=== PATIENT | female | born 1990 | race Caucasian/White ===

== ENCOUNTER → 2016-09-18 | Outpatient (CLI) | payer BC ==
[~2016-09-18] MED LIST: LEVOIUD INT UTER; SUMA25TA12 PO
[2016-09-18 15:00] LABS: URINE APPEARANCE CLEAR (CLEAR); URINE BILIRUBIN NEG (NEG); URINE COLOR YELLOW; URINE NITRITE NEG (NEG); URINE PH 8.5 (4.5-7.5); UROBILINOGEN NEG (NEG)
[2016-09-18 15:03] LABS: MANUAL MICROSCOPIC REQUIRED? NO; REVIEW REQ? NO
== END | disposition home or self-care (01) ==
LOC: C.LABSPEC 13:51
PROVIDERS: ATTEND Obstetrics & Gynecology
DX: Z34.90 Encounter for supervision of normal pregnancy, unspecified, unspecified trimester (principal)

== ENCOUNTER → 2016-09-24 | Outpatient (CLI) | payer BC | END | disposition home or self-care (01) | LOC: C.PAPS 13:32 | PROVIDERS: ATTEND Obstetrics & Gynecology | DX: Z01.419 Encounter for gynecological examination (general) (routine) without abnormal findings (principal) ==

== ENCOUNTER → 2016-09-24 | Outpatient (CLI) | payer BC ==
[2016-09-26 01:36] LABS: CHLAMYDIA TRACH RNA*** NOT DETECTED (NOT DETECTED); GC (NEIS GONORRHOEAE)RNA** NOT DETECTED (NOT DETECTED)
== END | disposition home or self-care (01) ==
LOC: C.LABSPEC 11:58
PROVIDERS: ATTEND Obstetrics & Gynecology
DX: Z34.90 Encounter for supervision of normal pregnancy, unspecified, unspecified trimester (principal)

== ENCOUNTER → 2016-09-24 | Outpatient (CLI) | payer BC ==
[2016-09-24 09:54] LABS: BASO % 0.2 %; BASO ABS # 0.02 K/uL (0-0.2); COMPLETE YES; EOS % 1.4 %; HEMATOCRIT 37.6 % (37-47); IG% 0.2 %; LYMPH % 21.8 %; LYMPH ABS # 2.48 K/uL (1.2-3.4); MEAN CELL VOLUME 89.5 fL (80-100); MEAN CORPUSCULAR HGB CONC 34.6 g/dl (32-36); MEAN PLATELET VOLUME 9.2 fL (7.4-10.4); MONO % 4.2 %; NEUT % 72.2 %; PLATELET COUNT 307 K/uL (130-400); WHITE BLOOD COUNT 11.39 K/uL (4.8-10.8)
== END | disposition home or self-care (01) ==
LOC: C.LAB1850 09:04
PROVIDERS: ATTEND Obstetrics & Gynecology
DX: Z34.90 Encounter for supervision of normal pregnancy, unspecified, unspecified trimester (principal)

== ENCOUNTER → 2016-11-17 | Outpatient (CLI) | payer BC ==
[2016-11-17 18:20] LABS: GTGD 50 Grams
[2016-11-20 13:26] LABS: AFP CONCENTRATION 45.7 NG/ML; AFP MULTIPLE OF MEDIAN 1.13; AFPTS GESTATIONAL AGE 18.4 WEEKS; AFPTS INSULIN DEP DIABETIC? NO; AFPTS MATERNAL WT 178 LBS; ALPHA-FETOPROTEIN RACE CAUCASIAN=W; ESTRIOL MULTIPLE OF MEDIAN 0.62; HISTORY OF NTD NO; INHIBIN A 190 PG/ML; INHIBIN A MOM 1.23; REPEAT SAMPLE? NO; hCG MULTIPLE OF MEDIAN 1.66
== END | disposition home or self-care (01) ==
LOC: C.LAB1850 15:50
PROVIDERS: ATTEND Obstetrics & Gynecology
DX: Z34.82 Encounter for supervision of other normal pregnancy, second trimester (principal)

== ENCOUNTER → 2017-02-19 | Outpatient (CLI) | payer BC | END | disposition home or self-care (01) | LOC: C.LAB1850 07:47 | PROVIDERS: ATTEND Obstetrics & Gynecology | DX: O28.1 Abnormal biochemical finding on antenatal screening of mother (principal); Z3A.00 Weeks of gestation of pregnancy not specified ==

== ENCOUNTER → 2017-04-07 | Outpatient (CLI) | payer BC ==
[~2017-04-07] MED LIST changes: +LEVO1IUD2 INT UTER; -LEVOIUD INT UTER; +PRENTAB26 PO
== END | disposition home or self-care (01) ==
LOC: C.LABSPEC 17:46
PROVIDERS: ATTEND Obstetrics & Gynecology
DX: Z34.83 Encounter for supervision of other normal pregnancy, third trimester (principal)

== ENCOUNTER 2017-04-21 11:17 | Inpatient (IN) | payer BC ==
[~2017-04-21] VITALS: Ht 160 cm; Wt 99.1 kg
[~2017-04-21 11:17] MED LIST changes: -PRENTAB26 PO
[2017-04-21] MEDS ORDERED: LACTATED RINGER'S 1000ML 1,000 ML IV SCH ×2 (11:30→16:38)
[2017-04-21] MEDS ORDERED: LACTATED RINGER'S 1000ML 1,000 ML IV PRN (11:30)
[2017-04-21] MEDS ORDERED: BUPIVACAINE 0.25% 30 ML VIAL ONE (11:46)
[2017-04-21] MEDS ORDERED: FENTANYL 2MCG/ML ROPIV 1.25MG/ML 100ML BAG EPI ONE (11:47)
[2017-04-21] MEDS ORDERED: EpHEDrine SULFATE INJ 50 MG/ML AMP ONE (11:47)
[2017-04-21] MEDS ORDERED: FENTANYL CITRATE INJ 50 MCG/1 ML 2 ML VIAL ONE (11:47)
[2017-04-21 11:48] LABS: HEMATOCRIT 38.4 % (37-47); HEMOGLOBIN 13.5 g/dL (12.0-16.0); MEAN CELL VOLUME 94.1 fL (80-100); MEAN CORPUSCULAR HEMOGLOBIN 33.1 pg (25-34); MEAN CORPUSCULAR HGB CONC 35.2 g/dl (32-36); MEAN PLATELET VOLUME 9.8 fL (7.4-10.4); PLATELET COUNT 258 K/uL (130-400); RED CELL DISTRIBUTION WIDTH CV 13.4 % (11.5-14.5); RED CELL DISTRIBUTION WIDTH SD 46.2 fL (36.4-46.3); WHITE BLOOD COUNT 12.01 K/uL (4.8-10.8)
[2017-04-21 12:55] VITALS: Ht 160 cm; Wt 99.1 kg
[2017-04-21] MEDS ORDERED: PRENTAB26 PO (13:13)
[2017-04-21] MEDS ORDERED: NALOXONE HCL INJ 1 MG in SODIUM CHLORIDE 0.9% 1000ML 1,000 ML IV PRN (14:17)
[2017-04-21] MEDS ORDERED: LACTATED RINGER'S 1000ML 500 ML IV PRN (14:17)
[2017-04-21] MEDS ORDERED: NALOXONE HCL INJ 0.4 MG/1 ML VIAL/CARP IV PRN (14:30)
[2017-04-21] MEDS ORDERED: ONDANSETRON INJ 2 MG/ML 2 ML VIAL IV PRN (14:30)
[2017-04-21] MEDS ORDERED: EpHEDrine SULFATE INJ 50 MG/ML AMP IV PRN (14:30)
[2017-04-21] MEDS ORDERED: DiphenhydrAMINE HCL 50 MG/ML VIAL IV PRN (14:30)
[2017-04-21] MEDS ORDERED: NALBUPHINE HCL INJ 10 MG/ML AMP IV PRN (14:30)
[2017-04-21] MEDS: FENTANYL 2MCG/ML ROPIV 1.25MG/ML 100ML BAG EPI PRN ×2 (14:53→15:20)
[2017-04-21] MEDS ORDERED: CALCIUM CARBONATE 500 MG CHEWABLE PO PRN (15:30)
--- NOTE | 2017-04-21 15:31 | Medical Student: [facility] ---
Med Student TRANSFORMER MAKER Progress Nt Date of Service Apr 21, 2017. Subjective conversation w/ patient, physical exam Notes: Raiza is resting comfortably. Objective Vital Signs BP: 137/66 P: 95 O2: 96% Physical Exam Cervix exam: 8 cm dilated, 100% effaced, -1 station FHTs: Category 1: baseline HR 135-145 with moderate variability and accelerations. No early/late/variable decelerations Omao: Contractions every 2-3 minutes. Laboratory Results Last 24 Hours Test 04/21/17 11:40 White Blood Count 12.01 K/uL Red Blood Count 4.08 M/uL Hemoglobin 13.5 g/dL Hematocrit 38.4 % Mean Corpuscular Volume 94.1 fL Mean Corpuscular Hemoglobin 33.1 pg Mean Corpuscular Hemoglobin Concent 35.2 g/dl RDW Standard Deviation 46.2 fL RDW Coefficient of Variation 13.4 % Platelet Count 258 K/uL Mean Platelet Volume 9.8 fL Assessment and Plan Continue Routine Care: Raiza Rod is a with SELAM of 05/04/2017 who presented for onset of labor with ROM at 3/100/-1. Her BP has elevated some after her epidural up to 140s/80-low 90s. She also has 2+ protein in her urine (straight cath). She is an anticipated vaginal delivery and will continue to monitor BPs and treat accordingly to prevent preeclampsia if necessary.
[2017-04-21] MEDS ORDERED: OXYTOCIN 30 UNITS/500ML NSS IV ONE (16:25)
[2017-04-21] MEDS ORDERED: ACETAMINOPHEN 325 MG TAB PO PRN (16:45)
[2017-04-21] MEDS ORDERED: DIPHTHERIA/TETANUS/PERTUSSIS 0.5 ML SYR/VIAL IM. ONE (16:45)
[2017-04-21] MEDS ORDERED: OXYCODONE/ACETAMINOPHEN 5-325 TAB PO PRN (16:45)
[2017-04-21] MEDS ORDERED: LANOLIN OINT EXT PRN (16:45)
[2017-04-21] MEDS ORDERED: OXYTOCIN 30 UNITS/500ML NSS IV PRN (16:45)
[2017-04-21] MEDS ORDERED: HYDROCORTISONE ACETATE 25 MG SUPP PR PRN (16:45)
[2017-04-21] MEDS ORDERED: BENZOCAINE 20% AER SPR 82.5 GM CAN EXT PRN (16:45)
[2017-04-21] MEDS ORDERED: SUPERCREAM 0.870 % 15GM JAR EXT PRN (16:45)
--- NOTE | 2017-04-21 16:56 | Medical Student: [facility] ---
Medical Student Delivery Note Raiza Rod is a 26 yo white female now 2 with EDC of 05/04/2017 as estimated by LMP on 07/28/2016. Her labs showed blood type O+, rubella immune, HepB negative, declined genetic testing, negative GBS titer, normal glucose screen at 28 weeks (187). She presented with spontaneous rupture of membranes this morning at 3/100/-1. She pushed for approximately 5 minutes, delivering a viable female infant POOJA position and restituted to LOT, over intact perineum. placed on the mother's abdomen for drying and attention. Umbilical cord was clamped in 2 places and cut. Cord blood sample was obtained. Placenta was delivered spontaneously and intact. Perineum inspection showed no laceration. EBL was 250ml. Sponge, instrument, and needle count was correct x2. Vigorous female 's Apgars were 8 (1 minute) and 9 (5 minute); weight is pending. Mother and baby are doing well and recovering together.
--- NOTE | 2017-04-21 17:24 | Anesthesia Procedure Note ---
Anesthesia Epidural Removal Nt Date & Time Apr 21, 2017 at 17:24 Vital Signs Pain Intensity: 0.0 Notes Mental Status: alert / awake / arousable, participated in evaluation Nausea / Vomiting: adequately controlled Pain: adequately controlled Airway Patency, RR, SpO2: stable & adequate BP & HR: stable & adequate Hydration State: stable & adequate Neuraxial Anesthesia: was administered Anesthetic Complications: no major complications apparent, pt satisfied with anesthetic care Epidural: removed without complications, with tip intact
[2017-04-21] MEDS: IBUPROFEN 600 MG TAB PO PRN ×2 (19:00→23:09)
[2017-04-21 19:15] VITALS: BP 147/77; PULSE 85; TEMP 37
--- NOTE | 2017-04-21 19:16 | DELIVERY SUMMARY ---
DATE OF OPERATION: 04/21/2017 PREOPERATIVE DIAGNOSES: 1. 2, para 1 at 38 and 1. 2. Spontaneous onset of labor. 3. Group B strep negative. POSTOPERATIVE DIAGNOSES: Same. PROCEDURE: Spontaneous vaginal delivery. SURGEON: Sia Thorpe MD. COCOA MILL OPERATOR: None. ESTIMATED BLOOD LOSS: 250. COMPLICATIONS: None. DISPOSITION: Stable in labor and delivery. DESCRIPTION OF PROCEDURE: Raiza Rod is a G2, P1 who presented at 38 and 1/7 weeks gestational age with spontaneous rupture of membranes and onset of painful contractions at home. She was provided with an epidural for pain management and she progressed with expectant management all the way to completely dilated with an urge to push. She began at second stage of labor with nursing. Shortly thereafter she had brought the head well down towards [facility] and I was called for delivery. I gowned and gloved and the patient was scrubbed. Over the next few pushing efforts, she brought the head to delivery shortly thereafter followed by the shoulders and reminder of infant with no difficulty. The vigorous female infant was placed on the maternal abdomen where the cord was doubly clamped and cut by the father of the baby. The placenta delivered spontaneously and was noted to be intact with a 3-vessel cord and a significantly sized succenturiate lobe which will therefore be sending for examination. There were no lacerations of the cervix, vagina or perineum requiring repair. At the current time, both mother and infant are in stable condition having tolerated the delivery well. I attest to the content of the Intraoperative Record and any orders documented therein. Any exception s are noted below.
[2017-04-21 20:10] VITALS: BP 141/67; PULSE 80; TEMP 36.7; O2SAT 98
[2017-04-21] MEDS: DOCUSATE SODIUM 100 MG CAP PO SCH (20:32)
[2017-04-21 23:50] VITALS: BP 136/78; PULSE 76; TEMP 36.9
[2017-04-22 04:20] VITALS: BP 135/73; PULSE 79; TEMP 36.7
--- NOTE | 2017-04-22 05:55 | Medical Student: [facility] ---
Med Student MINK RANCHER Progress Nt Date of Service Apr 22, 2017. Subjective conversation w/ patient, physical exam Ambulation: ambulating normally Voiding: no voiding problems Passing Gas: Yes Diet Tolerance: Regular Diet Lochia: Moderate Feeding Type: Breast Feeding Pain: controlled with motrin Notes: She was breast feeding on exam. She reports baby does well on left but has trouble latching on right. Would like assistance from nursing at next feeding. Review of Systems Constitutional: No fever, No chills Respiratory: No cough, No shortness of breath Cardiac: No chest pain, No edema, No palpitations Abdomen: + nausea (upon standing, but passes quickly), No vomiting, No diarrhea Female : No dysuria No RUQ pain, no headache, no blurry vision. Objective Vital Signs Date Time Temp Pulse Resp B/P (MAP) Pulse Ox O2 Delivery O2 Flow Rate FiO2 04/22/17 04:20 36.7 79 20 135/73 (93) Room Air 04/21/17 23:50 Room Air 04/21/17 23:50 36.9 76 18 136/78 (97) Room Air 04/21/17 20:10 36.7 80 18 141/67 (91) 98 Room Air 04/21/17 19:15 37.0 85 18 147/77 (100) 04/21/17 19:15 Room Air Physical Exam General Appearance: WELL-APPEARING, WD/WN, NO APPARENT DISTRESS Respiratory/Chest: lungs clear, normal breath sounds Cardiovascular: regular rate, rhythm, no edema, no murmur Abdomen: soft Fundus: Firm, Relation to Umbilicus (at umbilicus) Extremities: non-tender, no pedal edema, no calf tenderness Laboratory Results Last 24 Hours Test 04/21/17 11:40 04/22/17 04:44 White Blood Count 12.01 K/uL Red Blood Count 4.08 M/uL Hemoglobin 13.5 g/dL Hematocrit 38.4 % Mean Corpuscular Volume 94.1 fL Mean Corpuscular Hemoglobin 33.1 pg Mean Corpuscular Hemoglobin Concent 35.2 g/dl RDW Standard Deviation 46.2 fL RDW Coefficient of Variation 13.4 % Platelet Count 258 K/uL Mean Platelet Volume 9.8 fL Assessment and Plan Post- Day Number: 1 Continue Routine Care: 26 f now 2 PPD1, GBS-/O+/RI Vitals reviewed, stable and WNL. Hgb 13.5 at admission, pending today. She has moderate lochia with some small clots, changing pad every 2-3 hours but can be soaked through. She is having a little trouble breast feeding on right breast, and requests some additional support at next feeding. Plan; 1. Continue recovery from vaginal delivery and post care, encourage ambulation, support breast feeding, control pain, monitor lochia.
[2017-04-22 07:05] VITALS: BP 123/79; PULSE 74; TEMP 36.6; O2SAT 98
--- NOTE | 2017-04-22 07:24 | OB/GYN Progress Note ---
[facility]DC[facility] C[facility] DIRECTOR Progress Note Date of Service Apr 22, 2017. Subjective conversation w/ patient, physical exam, chart review, lab review Ambulation: ambulating normally Voiding: no voiding problems Passing Gas: Yes Diet Tolerance: Regular Diet Lochia: Moderate Feeding Type: Breast Feeding Pain: controlled with motrin Notes: wants support for BF Review of Systems Constitutional: No fever, No chills Respiratory: No cough, No shortness of breath Cardiac: No chest pain, No palpitations Abdomen: + nausea, No pain, No vomiting Female : No dysuria No RUQ pain, FREEMAN, blurry vision Objective Vital Signs Date Time Temp Pulse Resp B/P (MAP) Pulse Ox O2 Delivery O2 Flow Rate FiO2 04/22/17 04:20 36.7 79 20 135/73 (93) Room Air 04/21/17 23:50 Room Air 04/21/17 23:50 36.9 76 18 136/78 (97) Room Air 04/21/17 20:10 36.7 80 18 141/67 (91) 98 Room Air 04/21/17 19:15 37.0 85 18 147/77 (100) 04/21/17 19:15 Room Air Physical Exam General Appearance: WELL-APPEARING, WD/WN, NO APPARENT DISTRESS Respiratory/Chest: lungs clear, normal breath sounds Cardiovascular: regular rate, rhythm, no murmur Fundus: Firm, Relation to Umbilicus (at umbilicus ) Extremities: normal inspection, no pedal edema, no calf tenderness Laboratory Results Last 24 Hours Test 04/21/17 11:40 04/22/17 04:44 White Blood Count 12.01 K/uL Red Blood Count 4.08 M/uL Hemoglobin 13.5 g/dL Hematocrit 38.4 % Mean Corpuscular Volume 94.1 fL Mean Corpuscular Hemoglobin 33.1 pg Mean Corpuscular Hemoglobin Concent 35.2 g/dl RDW Standard Deviation 46.2 fL RDW Coefficient of Variation 13.4 % Platelet Count 258 K/uL Mean Platelet Volume 9.8 fL Assessment and Plan Post- Day Number: 1 Continue Routine Care: 26 f now 2 PPD1 GBS-/O+/RI. Hg 13.5 on admission, pending today. Patient is doing well clinically. Patient presented with ruptured membranes, proteinuria +2 and SBP in the 140's. Since delivery her pressures have normalized (135/73 this am). Will continue to follow this am. Pt will be dc tonight. Plan; 1. Continue pp care; ambulate, support Bf, monitor lochia, control pain 2. Serial BP today, plan for dc tonight, instructions discussed with patient Resident Physician Supervision Note: I was present with Dr. Sullivan during the history and exam. I discussed the case with the resident and agree with the findings and plan as documented in the note. Any exceptions or clarifications are listed here: [None] Documented By: Sia Thorpe
--- NOTE | 2017-04-22 07:26 | Discharge Instructions ---
Discharge Instructions Date of Service Apr 22, 2017. Admission Reason for Admission: R/O Labor Discharge Discharge Diagnosis / Problem: vaginal delivery Discharge Goals Goal(s): Routine recovery after delivery Medications Continue Dispensed Medications: supercream, dermaplast, tucks, lansinoh Activity Recommendations Activity Limitations: per Instructions/Follow-up section . Instructions / Follow-Up Instructions / Follow-Up ACTIVITY RECOMMENDATIONS: * Gradual return to full activity over the next 2-3 weeks. * No lifting - nothing heavier than baby over the next 2-3 weeks. * Do not engage in vigorous exercise, sexual activity or sports until cleared by your physician. * Do not drive or operate any motorized equipment until cleared by your physician. * You may shower/bathe daily. MEDICATIONS: For discomfort or pain, you may use Acetaminophen (Tylenol), Ibuprofen (Advil), or Naproxen (Aleve) following the package directions. For constipation you may use Colace following the package directions. BREAST CARE: If you are not breast feeding: * Wear a supportive bra 24 hours a day for one to two weeks. * Avoid stimulating your breasts and nipples as much as possible during the first few weeks after delivery. * When taking a shower, have the warm water hit your back, not breasts. * When your breasts feel full, apply ice packs. Usually three to four times a day helps ease the discomfort. * Take a mild pain medication (Tylenol / Motrin) when you are uncomfortable. If breast feeding: * Use breast milk to lubricate nipples. Lansinoh cream may be used for sore nipples. You do not need to remove cream prior to breast feeding. If using a different brand of cream, check the label for directions regarding removal of cream prior to nursing. * Wear a supportive bra. * If having problems with breasts or breast feeding, call a personnel consultant or your health care provider. EPISIOTOMY CARE: After delivery, if you have an episiotomy (stitches), the following steps will ease discomfort and aid healing. * For the first 24 hours after delivery, place ice packs next to your episiotomy to help reduce swelling. * After the first 24 hour-period, sitz baths, either portable or in the tub, are suggested. A shower with a shower arm sprayed over the episiotomy may be comforting. * Mari care should be done after each voiding and bowel movement. Squirt warm water from a plastic bottle over the perineum (region of the body between the anus and urinary opening) and pat dry. * Use Dermoplast to ease discomfort. Shake container. Fitzwilliam directly over the episiotomy. Place a Tucks on a clean sanitary pad next to your episiotomy. SPECIAL CARE INSTRUCTIONS: When you are discharged from the hospital, it is important for you to follow the instructions listed below: * During the first week at home, you should be able to care for yourself and your baby. In addition, the usual light household activities are encouraged. * Limit your activities to the way you feel. Do not try to clean the house or move furniture. Be sensible. * If you actively engage in sports and have done so up until the time of your delivery, you may resume these activities as soon as you feel able. This may take up to one month or even longer. Use good judgment. * Continue to take your vitamins for at least six weeks after the of your baby. * Your diet need not be limited unless you were on a special diet before your delivery. Breast-feeding mothers need around 2500 calories per day and at least 64-80 ounces of fluid per day (8 to 10 glasses). * You should eat foods from the four major food groups. Crash diets or fad diets are to be avoided. Eating lean meats, fresh fruits and vegetables, low-fat dairy products, high fiber foods and a regular exercise program, will help you get back to your pre- weight without putting your health at risk. * Constipation is sometimes a problem after delivery. Take a mild laxative as needed. If breast feeding, Milk of Magnesia is acceptable to use. You may use a suppository or Fleets enema if no episiotomy. * A daily shower or tub bath is suggested. Be sure to thoroughly and gently dry the perineum. * A bloody vaginal discharge will usually continue until around four weeks post . A small amount of bleeding may continue for as long as six weeks. Vaginal discharge changes from the bright red bleeding after delivery to pink then brownish and finally yellowish-pink before becoming white and disappearing. * Bleeding may increase with activity. Your first period may come in 4-8 weeks. If you are breast feeding, your period may be delayed even longer. * Axis (sex) can begin whenever both you and your partner feel comfortable and do not have any form of genital infection. It is recommended that you wait at least six weeks for internal and external healing to occur. If you have questions, please talk to your health care practitioner. A condom should be used to prevent infection and . * Foreplay, gentle intercourse and lubrication is very important the first several times to prevent pain. A water-based lubricant such as K-Y jelly or Astroglide may be used. * If you have RH negative blood and your baby is RH positive, you will receive RHOGAM by injection prior to discharge. The nurse will give you a card to keep with you that has the date and place that you received RHOGAM after delivery. * During your care, you had a Rubella screen done to check for the presence of rubella antibodies in your blood. If your test was negative, you will receive a Rubella vaccine prior to discharge. This vaccine may cause a fever, soreness at the injection site and flu-like symptoms. If these symptoms persist, notify your health care practitioner. is not advised for one month after a Rubella vaccine. * Verbalizes understanding of car seat law as reviewed with patient nursing. * Car Seat hand-out given and reviewed with patient by nursing. * Shaken baby information reviewed with patient by nursing. Call you doctor if: * Heavy bleeding (saturating several pads an hour) or passing clots the size of your fist. * A fever >101 degrees F (38.3 degrees C) on two occasions four hours apart and /or chills. * Unusual pain in the pelvic or vaginal areas. * "Baby Blues" lasting longer than two weeks. If you have any questions or concerns, call your health care practitioner at . FOLLOW UP VISIT: * Please call the office at to schedule a 6 week examination. It is important you keep this appointment. It is important for you to make arrangements for either yearly or twice yearly check-ups thereafter. Current Hospital Diet Patient's current hospital diet: Regular OB Diet Discharge Diet Recommended Diet: Regular OB Diet Pending Studies Studies pending at discharge: no Medical Emergencies . Who to Call and When: Medical Emergencies: If at any time you feel your situation is an emergency, please call [phone] immediately. . Non-Emergent Contact Non-Emergency issues call your: Parking Inspector . . "Provider Documentation" section prepared by Chai Sullivan. . VTE Core Measure Inpt VTE Proph given/why not?: Treatment not indicated
[2017-04-22] MEDS ORDERED: PRENATAL VITAMIN TAB PO SCH (08:00)
[2017-04-22] MEDS: DOCUSATE SODIUM 100 MG CAP PO SCH (08:28)
[2017-04-22] MEDS: IBUPROFEN 600 MG TAB PO PRN ×2 (08:33→14:18)
[2017-04-22 11:07] VITALS: BP 148/84; PULSE 78; TEMP 36.7; O2SAT 97
[2017-04-22 16:30] VITALS: BP 148/83; PULSE 72; TEMP 36.8; O2SAT 96
== END 2017-04-22 19:15 | disposition home or self-care (01) | DRG 775 ==
LOC: C.LD 11:17 → C.OPB 11:17 → C.LD 11:31 → C.OBG 19:20 → EDSTATUS 05-04 11:24
PROVIDERS: ADMIT Obstetrics & Gynecology; ATTEND Obstetrics & Gynecology
PROC: 10E0XZZ Delivery of Products of Conception, External Approach (ICD-10-PCS; principal; 2017-04-21)
DX: O80 Encounter for full-term uncomplicated delivery (principal); Z3A.38 38 weeks gestation of pregnancy; Z37.0 Single live birth

== ENCOUNTER → 2017-08-24 | Outpatient (CLI) | payer BC ==
[~2017-08-24] MED LIST changes: -LEVO1IUD2 INT UTER; +PRENTAB26 PO; -SUMA25TA12 PO
[2017-08-24 16:59] LABS: HEP C IGG 13 YRS+OLDER_RFLX NEG (NEG)
== END | disposition home or self-care (01) ==
LOC: C.LAB1850 13:47
PROVIDERS: ATTEND Obstetrics & Gynecology
DX: Z11.3 Encounter for screening for infections with a predominantly sexual mode of transmission (principal)

== ENCOUNTER 2020-06-03 05:38 | Inpatient (IN) ==
--- NOTE | 2020-05-20 13:53 | Anesthesiology Consultation ---
Date of Service May 20, 2020 Assessment & Plan (1) Encounter for pre-operative examination: COVID Status: As of 05/20 nurse assessment, patient denies travel to endemic area, known exposure/sick contacts, or symptoms of COVID19. Preoperative COVID19 testing to be completed on 05/28. Chart Review Chart Review: direct entry midwife initiated History Surgery Operation Date: 06/03/20 07:30 Proposed Procedures p Section in LD - Reny Law MD Height/Weight Height: 5 ft 2 in Weight: 93.894 kg Allergies Allergy/AdvReac Type Severity Reaction Status Date / Time No Known Allergies Allergy Mild Verified 05/20/20 13:21 Medications Home Medications Medication Instructions Recorded Confirmed Last Taken prenat.vits,yan,[id number] 1 tab PO QAM 10/18/19 05/20/20 Unknown sertraline 50 mg PO QAM 05/20/20 05/20/20 Unknown Past Medical History Medical History Anxiety Depression Palpitations holter monitor study summer 2019 - [facility] - "skipped beats" - monitoring; no treatment; no flosser Past Family History Family History Mother Alcohol abuse Depression Grandmother (Paternal) Stroke Family/Other Diabetes Grandfather (Paternal) Lung cancer Brother Narcolepsy Other No family history of adverse response to anesthesia Past Surgical History Surgical History History of colonoscopy History of surgery removal IUD History of wisdom tooth extraction Social History Smoking Status: Former smoker Do You Dip or Chew Tobacco: No Smoking End Date: quit 2017 Hx Alcohol Use: No Hx Substance Use: No substance use type: does not use Testing Other Testing Holter Monitor Report 11/27/19 Good technical quality. Rhythm is predominantly sinus rhythm, avg HR 79bpm. Isolated APD and VPDs, no complex arrhythmias. Diary submitted symptoms of "flutter and thump" correlated with VPDs.
--- NOTE | 2020-05-30 19:33 | History & Physical Report ---
Date of Service May 30, 2020 Assessment & Plan (1) Breech presentation: Discussed indications, risks, benefits, alternatives with risks including infection, bleeding, injury to adjacent structures (bowel, bladder, ureters, blood vessels, nerves, baby), possible need for blood transfusion and/or life saving hysterectomy, VTE. Discussed option for ECV which was again declined today as it was previously. Consent reviewed in detail w/ pt and signed after all questions answered to her satisfaction. Based on timing of symptoms, pt will be outside of 11 day window for needing covid precautions. Will plan on ultrasound prior to going to OR on Wednesday to confirm breech presentation again. (2) Encounter for pre-operative examination: History of Present Illness Chief Complaint: Preop for CS Primary Care Provider: OSWALDO Pineda 29 y/o at 39 wga w/ SELAM 06/06/20 by LMP 08/31/19 c/w 1st tri US presents for preop for scheduled primary CS for breech. +FM; denies tx, LOF, VB. Was just dx w/ COVID 05/25 after s/s began 05/22. Symptoms improving today PNI: COVID + breech ASCUS/HPV- pap at beginning of Past FINANCIAL EXAMINER Hx: G1 at 41 wks, IOL for oligo G2 at 38 wks G3 current Menarche 13, cycles regular last pap ASCUS/HPV- 10/2019, no hx abnl pap otherwise denies hx STI Allergies Allergy/AdvReac Type Severity Reaction Status Date / Time No Known Allergies Allergy Mild Verified 05/30/20 15:33 Home Medications Medication Instructions Recorded Confirmed Type prenat.vits,yan,kto-qgua-yryow 1 tab PO QAM 10/18/19 05/30/20 History sertraline 50 mg PO QAM 05/20/20 05/30/20 History Patient History Medical History Anxiety Depression Palpitations holter monitor study summer 2019 - [facility] - "skipped beats" - monitoring; no treatment; no machine heddle cleaner Surgical History History of colonoscopy History of surgery hysteroscopic removal IUD History of wisdom tooth extraction Family History Mother Alcohol abuse Depression Grandmother (Paternal) Stroke Family/Other Diabetes Grandfather (Paternal) Lung cancer Brother Narcolepsy Other No family history of adverse response to anesthesia Social History Smoking Status: Former smoker Second Hand Exposure: Yes (as a child); Hx Alcohol Use: No Hx Substance Use: No Preferred Language: Malay Communication Ability: Effective Vehicle Fuel Systems Converter Required: No Beliefs That Will Affect Care: None marital status: Single marital status details: radha Oquendo [phone] Current Living Situation: Family Current Living Situation Comment: lives with 2 daughters, dogs, rabbit, cat- daughter changing litter current occupational status: employed current occupation: [employer] Feels Safe at Home: Yes Dental Care, Regularly: No Physical Activity Frequency: Does not Exercise Assistive Devices: None Physical Exam Constitutional: WD/WN, vitals as above Respiratory: normal respiratory effort; no respiratory distress and no labored breathing Genitourinary: OB Exam Abdomen: + fundal height (term), + heart tones (130s) and + breech Results & Data ([facility] [place]) Laboratory Results OB Labs: Blood Type O Positive 10/24/19 Antibody Screen NEGATIVE 10/24/19 Hemoglobin 11.3 g/dL (12.0-16.0) L 03/14/20 Hematocrit 32.7 % (37-47) L 03/14/20 Mean Corpuscular Volume 89.6 fL (80-100) 10/24/19 Platelet Count 333 K/uL (130-400) 10/24/19 Varicella-Zoster IgG Antibody 1312.00 INDEX 10/08/17 Rubella IgG Antibody Immune (Immune) 10/24/19 Rapid Plasma Reagin Nonreactive (Nonreactive) 10/24/19 Hepatitis B Surface Antigen Neg (Neg) 10/24/19 HIV (1&2) Ab and P24 Ag, 4th Gener Neg (Neg) 10/24/19 Glucose 1 Hour 50 gm Load 115 mg/dl (70-130) 03/14/20 OB Optional Labs: Chlamydia trachomatis RNA NOT DETECTED (NOT DETECTED) 10/24/19 Neisseria gonorrhoeae RNA NOT DETECTED (NOT DETECTED) 10/24/19 Thyroid Stimulating Hormone (TSH) 0.651 uIu/ml (0.300-4.500) 09/14/19 Labs Reviewed: declined all genetic testing GBS neg COVID+ Diagnostic Findings Fundal plac Coding Level of Care Code None Diagnoses Breech presentation O32.1XX0 Encounter for pre-operative examination Z01.818
[~2020-06-03 05:38] MED LIST changes: +LACTATED RINGER'S 1,000 ML IV SCH; -PRENTAB26 PO
[2020-06-03] MEDS ORDERED: LACTATED RINGER'S 1,000 ML IV SCH ×2 (06:00→12:24)
[2020-06-03] MEDS ORDERED: ceFAZolin 2000MG 2,000 MG/15 ML SYR IV SCH (06:00)
[2020-06-03] MEDS ORDERED: CITRIC ACID/SODIUM CITRATE 15 ML UDC ONE (06:07)
[2020-06-03 06:11] LABS: Hematocrit (blood only) 37.4 % (37-47); Hemoglobin 12.8 g/dL (12.0-16.0); Mean Corpuscular Hemoglobin 32.1 pg (25-34); Mean Corpuscular Hgb Conc 34.2 g/dL (32-36); Mean Corpuscular Volume 93.7 fL (80-100); Mean Platelet Volume 9.8 fL (7.4-10.4); Platelet Count 244 K/uL (130-400); RDW Coefficient of Variation 13.7 % (11.5-14.5); RDW Standard Deviation 46.8 fL (36.4-46.3); Red Blood Count 3.99 M/uL (4.2-5.4); White Blood Count 11.03 K/uL (4.8-10.8)
[2020-06-03 07:00] LABS: Basophils # (auto) 0.01 K/uL (0-0.2); Basophils % (auto) 0.1 %; Eosinophils # (auto) 0.01 K/uL (0-0.5); Eosinophils % (auto) 0.1 %; Immature Granulocytes # (auto) 0.04 K/uL (0.00-0.02); Immature Granulocytes % (auto) 0.4 %; Lymphocytes # (auto) 1.86 K/uL (1.2-3.4); Lymphocytes % (auto) 16.9 %; Monocytes # (auto) 0.34 K/uL (0.11-0.59); Monocytes % (auto) 3.1 %; Neutrophils # (auto) 8.77 K/uL (1.4-6.5); Neutrophils % (auto) 79.4 %
[2020-06-03] MEDS ORDERED: MoRPHine SULFATE PF 1 MG/ML 10 ML AMP/VIAL ONE (07:19)
--- NOTE | 2020-06-03 07:47 | History & Physical Bridge Note ---
Date of Service June 03, 2020 History & Physical Bridge Note I have examined the patient, reviewed the History & Physical and in the interval since the performance of the History & Physical I have noted the following changes of clinical significance: Pt presented to L&D today with c/o SOB that began on Wednesday (after pre-op appt where she was noting sore throat, cough and no SOB). On L&D, pt noted to be satting 92%, improved to 95-96% with O2. +FM and contractions. She is >10 days from symptom onset, however given change in symptoms which would be deemed worsened than previously, isolation can no longer be discontinued. Discussed w/ anesthesia that would not recommend deferring CS as she is multiparous, breech and already >39 wks. There would be concern that deferring CS may then put her in a more urgent delivery. After discussion w/ anesthesia, will move CS to be performed in OR1 w/ appropriate precautions/isolation and recover in negative pressure room and pt and aware. BSUS confirmed breech presentation, cat 1 tracing noted.
[2020-06-03] MEDS ORDERED: OXYTOCIN 10 UNITS/ML VIAL ONE (08:01)
[2020-06-03] MEDS ORDERED: PHENYLEPHRINE 100MCG/ML 5ML SYR ONE (08:01)
[2020-06-03] MEDS ORDERED: ePHEDrine sulfate 50 MG/ML AMP ONE (08:01)
[2020-06-03] MEDS ORDERED: LACTATED RINGER'S 500 ML IV PRN (10:07)
[2020-06-03] MEDS ORDERED: NALOXONE HCL 1 MG in SODIUM CHLORIDE 0.9% 1000ML 1,000 ML IV PRN (10:07)
[2020-06-03] MEDS ORDERED: diphenhydrAMINE 50 MG/ML VIAL IV PRN (10:07)
[2020-06-03] MEDS ORDERED: MEPERIDINE HCL 25 MG/ML CARP/VIAL IV PRN (10:07)
[2020-06-03] MEDS ORDERED: MoRPHine SULFATE 2 MG/ML CARP IV PRN (10:07)
[2020-06-03] MEDS ORDERED: NALOXONE HCL 0.08 MG in SYRINGE 1.8 ML IV PRN (10:07)
[2020-06-03] MEDS ORDERED: NALOXONE HCL 0.4 MG/1 ML VIAL/CARP IV PRN (10:07)
[2020-06-03] MEDS ORDERED: MoRPHine SULFATE PF 1 MG/ML 10 ML AMP/VIAL INT SPINAL ONE (10:07)
[2020-06-03] MEDS ORDERED: HYDROmorphone INJ 0.5 MG/0.5 ML SYR IV PRN (10:07)
[2020-06-03] MEDS ORDERED: ePHEDrine sulfate 50 MG/ML AMP IV PRN (10:07)
[2020-06-03] MEDS ORDERED: ONDANSETRON INJ 2 MG/ML 2 ML VIAL IV PRN (10:07)
[2020-06-03] MEDS ORDERED: DC INTRASPINAL MORPHINE SCH (10:15)
[2020-06-03] MEDS ORDERED: SODIUM CHLORIDE 0.9% 1000ML 1,000 ML IV SCH (10:15)
[2020-06-03] MEDS ORDERED: NO NARCOTICS OR SEDATIVES SCH (10:15)
--- NOTE | 2020-06-03 10:15 | Post Operative Brief Note ---
PG Immediate Post Op with CF Date of Surgery June 03, 2020 Pre & Post Diagnosis Operation Date: 06/03/20 07:30 Pre-Op Diagnosis: Single Intrauterine at 39 4/7 weeks; Breech Presentation;Declines ECV;Covid positive Post-Op Diagnosis: Same; Delivery of a live male child at 0908 ( mainr OR 1) I identified the patient and participated in the time-out.: Yes Procedure Operation Date: 06/03/20 07:30 Actual Procedures p Primary Low Transverse Section - Reny Law MD Surgeon Reny Law MD Stock Broker Supervisor Abi Estimated Blood Loss 600 Findings Consistent with Post-Op Diagnosis Normal appearing uterus, bilateral fallopian tubes and ovaries. Viable male with APGARs of 7 and 9 at 1 and 5 minutes, respectively Specimens Specimen Description: A. Placenta-hold B. Cord Blood Drains Granger Catheter (draining clear urine) Anesthesia Type Spinal Complications none Disposition Accompanied Patient To Recovery: Yes Disposition: L&D
--- NOTE | 2020-06-03 10:26 | Operative Report ---
PG Post Operative Report Pre & Post Diagnosis Operation Date: 06/03/20 07:30 Pre-Op Diagnosis: Single Intrauterine at 39 4/7 weeks; Breech Presentation, declines ECV; Covid positive Post-Op Diagnosis: Same; Delivery of a live male child at 0908 ( main OR 1) I identified the patient and participated in the time-out.: Yes Procedure Operation Date: 06/03/20 07:30 Actual Procedures p Primary Low Transverse Section - Reny Law MD Surgeon Reny Law MD Dental Laboratory Assistant Abi Estimated Blood Loss 600 Findings Consistent with Post-Op Diagnosis Normal appearing uterus, bilateral fallopian tubes and ovaries. Viable male with APGARs of 7 and 9 at 1 and 5 minutes, respectively Specimens A. Placenta-hold B. Cord Blood Drains Granger draining clear urine Anesthesia Type Spinal Complications none Disposition Accompanied Patient To Recovery: Yes Disposition: L&D Indications 29 y/o at 39 4/7 wga who presents for scheduled elective primary section for breech presentation. She had been previously counseled regarding ECV vs primary CS and had declined ECV. Breech presentation was again confirmed x 2 today. Consent was previously reviewed in depth with patient and signed with all questions answered to patient's satisfaction. Description of Procedure The patient was taken to the operating room after consents were ensured. The patient was properly identified. Spinal anesthesia was obtained without difficulty. The patient was placed in a dorsal supine position with left lateral tilt, then prepped and draped in normal sterile fashion. Surgical time out was performed. Antibiotics were given for prophylaxis. Anesthesia was tested to ensure adequate surgical levels. Pfannenstiel skin incision was performed and carried down to the underlying fascia with a knife. The fascia was then nicked in the midline and extended laterally with pickups and Mendez scissors. Superior portion of the fascia was grasped with Kochers x2 and elevated off the underlying rectus muscles using blunt dissection. Inferior portion of the fascia was then grasped with Ace clamps x2 and also elevated off the underlying muscles with blunt dissection. Midline was identified. The peritoneum was then entered and extended to provide adequate room for delivery of baby. The hand was inserted into the abdomen, uterus was noted to be clear of adhesions. Bladder blade was inserted, bladder flap was created in the usual fashion. A low transverse uterine incision was made in the uterus and extended bluntly in a superior to inferior fashion. Amniotomy was made with clear fluid at the time of rupture. breech was grasped and elevated through the hysterotomy. Both legs spontaneously delivered with fundal pressure. Moist blue towel was wrapped around the torso and remainder of torso, arms, and head spontaneously delivered with fundal pressure as well, loose nuchal cord x 2 were delivered through. Nose and mouth were bulb suctioned on the surgical field. The cord was double clamped and cut, baby was handed off to awaiting pediatrics staff. Cord segment and blood were obtained. Placenta was then expressed from the uterus. The uterus was exteriorized. Several passes were made inside the uterus to remove the remaining membranes. Attention was then turned to the hysterotomy, which was then closed with a running locked suture of 0 Vicryl on a CTX needle. An imbricating layer was then performed using 0-Monocryl. There was noted to be good hemostasis. The posterior cul-de-sac was then inspected and cleaned of clot and debris. The hysterotomy was again inspected and noted to be hemostatic. The uterus was returned to the abdomen. The right and left pericolic gutters were cleaned of all clot and debris. There was an aspect of the hysterotomy that was bleeding slightly and made hemostatic with figure of eight 0-Monocryl. The hysterotomy was again noted to be hemostatic. Space of Retzius was noted to be hemostatic. The fascia was then closed with a running suture of 0 Vicryl on a CT1 needle. Subcutaneous tissue was copiously irrigated and noted to be hemostatic. Subcutaneous tissue was re-approximated using 2-0 plain gut. The skin was then closed with a running suture of 3-0 Monocryl in a subcuticular fashion. At termination of the procedure, the fundal pressure was applied and a moderate amount of lochia was expressed. Pressure dressing was applied to the patient. She tolerated the procedure well. All sponge, needle, instrument counts were correct x 2. I attest to the content of the Intraoperative Record and any orders documented therein. Any exceptions are noted below. OB Procedure charges OB Charges 08509 C/S
[2020-06-03] MEDS: KETOROLAC 30 MG/ML VIAL IV PRN ×2 (10:40→17:14)
[2020-06-03] MEDS ORDERED: SENNA 8.6 MG TAB PO PRN (12:24)
[2020-06-03] MEDS ORDERED: BENZOCAINE 20% AER SPR 82.5 GM CAN EXT PRN (12:24)
[2020-06-03] MEDS ORDERED: SUPERCREAM 0.870% 15 GM JAR EXT PRN (12:24)
[2020-06-03] MEDS ORDERED: MAGNESIUM HYDROXIDE SUSP 30 ML UDC PO PRN (12:24)
[2020-06-03] MEDS ORDERED: DIPHTHERIA/TETANUS/PERTUSSIS 0.5 ML SYR/VIAL IM ONE (12:24)
[2020-06-03] MEDS ORDERED: HYDROCORTISONE ACETATE 25 MG SUPP PR PRN (12:24)
[2020-06-03] MEDS ORDERED: OXYTOCIN 20 UNITS in LACTATED RINGER'S 1,000 ML IV SCH (12:45)
--- NOTE | 2020-06-03 16:11 | Anesthesiology Progress Note ---
Date of Service June 03, 2020 Anesthesia Post Procedure Vital Signs Vital Signs: Temp Pulse Pulse Resp BP BP Pulse Ox 06/03/20 16:00 20 99 06/03/20 15:00 18 97 06/03/20 14:34 36.6 C 84 18 130/62 92 06/03/20 14:30 20 99 06/03/20 14:04 90 95 06/03/20 14:01 76 116/71 06/03/20 13:59 84 96 06/03/20 13:54 81 95 06/03/20 13:49 81 96 06/03/20 13:44 82 95 06/03/20 13:39 79 96 06/03/20 13:34 88 96 06/03/20 13:31 75 115/60 06/03/20 13:29 88 87 L 06/03/20 13:24 83 93 06/03/20 13:21 89 129/68 06/03/20 13:19 97 H 91 06/03/20 13:14 89 93 06/03/20 13:10 78 119/64 06/03/20 13:09 71 96 06/03/20 13:04 85 96 06/03/20 13:00 75 124/67 06/03/20 12:59 86 96 06/03/20 12:56 77 94 06/03/20 12:54 89 96 06/03/20 12:50 82 113/63 06/03/20 12:49 79 96 06/03/20 12:44 80 97 06/03/20 12:41 77 106/74 06/03/20 12:39 90 96 06/03/20 12:34 83 96 06/03/20 12:31 75 123/56 L 06/03/20 12:29 74 97 06/03/20 12:24 81 96 06/03/20 12:19 79 97 06/03/20 12:14 82 96 06/03/20 12:10 79 112/54 L 06/03/20 12:09 84 97 06/03/20 12:04 81 96 06/03/20 12:01 79 132/62 06/03/20 12:00 79 20 132/62 95 06/03/20 11:59 79 95 06/03/20 11:54 80 95 06/03/20 11:51 91 H 93 06/03/20 11:50 75 115/55 L 06/03/20 11:49 75 97 06/03/20 11:44 72 92 06/03/20 11:40 68 125/60 06/03/20 11:39 73 96 06/03/20 11:38 74 93 06/03/20 11:34 73 97 06/03/20 11:30 36.4 C L 94 H 88 20 125/58 L 125/58 L 97 06/03/20 11:29 90 94 06/03/20 11:24 78 97 06/03/20 11:20 78 130/58 L 06/03/20 11:19 75 96 06/03/20 11:16 74 94 06/03/20 11:14 74 97 06/03/20 11:10 71 136/64 06/03/20 11:09 76 97 06/03/20 11:04 73 97 06/03/20 11:01 73 92 06/03/20 11:00 74 73 20 128/73 128/73 96 06/03/20 10:59 71 98 06/03/20 10:55 74 93 06/03/20 10:54 74 97 06/03/20 10:50 74 74 20 146/67 H 146/67 H 97 06/03/20 10:49 77 97 06/03/20 10:44 67 97 06/03/20 10:40 88 83 20 144/64 H 144/64 H 100 06/03/20 10:39 74 98 06/03/20 10:35 86 92 06/03/20 10:34 78 98 06/03/20 10:31 82 113/77 06/03/20 10:30 85 20 113/77 94 06/03/20 10:29 74 97 06/03/20 10:20 68 68 20 136/74 136/74 95 06/03/20 10:10 68 68 20 132/73 132/73 98 06/03/20 10:00 36.5 C 88 88 20 131/87 131/87 98 06/03/20 08:32 91 H 96 06/03/20 08:31 88 92 06/03/20 08:27 90 96 06/03/20 08:22 87 97 06/03/20 08:17 86 96 06/03/20 08:12 89 96 06/03/20 08:07 82 95 06/03/20 08:02 85 96 06/03/20 07:57 92 H 95 06/03/20 07:55 80 94 06/03/20 07:52 84 93 06/03/20 07:49 84 93 06/03/20 07:47 93 H 96 06/03/20 07:42 90 95 06/03/20 07:40 86 94 06/03/20 07:37 97 H 96 06/03/20 07:32 92 H 95 06/03/20 07:27 97 H 96 06/03/20 07:16 93 H 95 06/03/20 07:11 95 H 92 06/03/20 07:06 103 H 92 06/03/20 07:01 99 H 92 06/03/20 06:56 94 H 92 06/03/20 06:51 100 H 92 06/03/20 06:14 37.1 C 18 06/03/20 05:50 37.1 C 18 06/03/20 05:49 94 H 126/70 Pain Intensity Lower Medial Back: Pain Intensity: 1 Lower Medial Abdomen: Pain Intensity: 1 Transfer of Care Handoff Completed per policy Notes Mental Status: alert / awake / arousable and participated in evaluation Patient Amnestic to Procedure: Yes Nausea / Vomiting: adequately controlled Pain: adequately controlled Airway Patency, RR, SpO2: stable & adequate BP & HR: stable & adequate Hydration State: stable & adequate Neuraxial Anesthesia: was administered and sensory block is resolving Anesthetic Complications: no major complications apparent
[2020-06-03] MEDS: SIMETHICONE 80 MG CHEW PO SCH ×3 (16:34→21:14)
[2020-06-03] MEDS ORDERED: LACTATED RINGER'S 500 ML IV ONE (19:21)
[2020-06-03 20:04] LABS: Hemoglobin 11.4 g/dL (12.0-16.0); Mean Corpuscular Hemoglobin 32.3 pg (25-34); Mean Corpuscular Hgb Conc 34.5 g/dL (32-36); Mean Corpuscular Volume 93.5 fL (80-100); Mean Platelet Volume 9.5 fL (7.4-10.4); Platelet Count 189 K/uL (130-400); RDW Coefficient of Variation 13.7 % (11.5-14.5); RDW Standard Deviation 46.7 fL (36.4-46.3); Red Blood Count 3.53 M/uL (4.2-5.4); White Blood Count 9.28 K/uL (4.8-10.8)
[2020-06-03 20:35] LABS: Albumin Level 1.7 gm/dl (3.4-5.0); Creatinine Clr Calc Pharmacy 143.5 ml/min; Est GFR (African American) 140.2; Potassium 3.4 mmol/L (3.5-5.1)
[2020-06-03 20:37] LABS: Albumin Globulin Ratio 0.5 (0.9-2); Bilirubin,Total 0.3 mg/dl (0.2-1); Globulin 3.3 gm/dl (2.5-4.0)
[2020-06-03] MEDS: DOCUSATE SODIUM 100 MG CAP PO SCH (21:14)
[2020-06-04] MEDS: KETOROLAC 30 MG/ML VIAL IV PRN (02:03)
[2020-06-04] MEDS ORDERED: KETOROLAC 30 MG/ML VIAL IV PRN (04:07)
[2020-06-04] MEDS ORDERED: ONDANSETRON INJ 2 MG/ML 2 ML VIAL IV PRN (04:07)
[2020-06-04] MEDS ORDERED: diphenhydrAMINE 50 MG/ML VIAL IV PRN (04:07)
[2020-06-04] MEDS ORDERED: diphenhydrAMINE Capsule 25 MG CAP PO PRN (04:07)
[2020-06-04] MEDS ORDERED: PROMETHAZINE HCL 25 MG in SODIUM CHLORIDE 0.9% 50 ML IV PRN (04:07)
[2020-06-04 06:41] LABS: Eosinophils # (auto) 0.05 K/uL (0-0.5); Eosinophils % (auto) 0.6 %; Hematocrit (blood only) 33.4 % (37-47); Hemoglobin 11.4 g/dL (12.0-16.0); Immature Granulocytes # (auto) 0.03 K/uL (0.00-0.02); Immature Granulocytes % (auto) 0.3 %; Lymphocytes # (auto) 2.05 K/uL (1.2-3.4); Lymphocytes % (auto) 23.7 %; Mean Corpuscular Hgb Conc 34.1 g/dL (32-36); Mean Corpuscular Volume 93.8 fL (80-100); Mean Platelet Volume 9.6 fL (7.4-10.4); Monocytes # (auto) 0.24 K/uL (0.11-0.59); Monocytes % (auto) 2.8 %; Neutrophils # (auto) 6.29 K/uL (1.4-6.5); Neutrophils % (auto) 72.6 %; Platelet Count 205 K/uL (130-400); RDW Coefficient of Variation 13.7 % (11.5-14.5); RDW Standard Deviation 46.9 fL (36.4-46.3); Red Blood Count 3.56 M/uL (4.2-5.4); White Blood Count 8.66 K/uL (4.8-10.8)
--- NOTE | 2020-06-04 08:35 | Obstetrical Progress Note ---
Date of Service June 04, 2020 Assessment & Plan (1) : POD#1 doing well. No concerns. Granger was removed this morning. Ambulating well. Eating/drinking. O2sat 97% on room air. Doing well. Subjective Ambulation: ambulating normally Voiding: no voiding problems Diet Tolerance:: regular diet Lochia:: Moderate Feeding Type:: breast feeding POD#1 doing well. during visit. Doing well. Review of Systems All systems reviewed & are unremarkable except as noted in HPI & below Physical Exam Constitutional WD/WN, vitals as above no acute distress Respiratory normal respiratory effort, lungs clear to auscultation normal respiratory effort; no respiratory distress and no labored breathing Cardiovascular Rate/Rhythm: regular rate and regular rhythm Gastrointestinal (Abdomen) Inspection/Auscultation: abdomen normal to inspection; abdomen not distended Percussion/Palpation: abdomen soft Genitourinary OB Exam Abdomen: + fundal height Fundus: + firm; not tender Results & Data ([facility]) Vital Signs (Past 12 Hours) Vital Signs Temp Pulse Resp BP Pulse Ox 06/04/20 06:26 97 06/04/20 05:04 99 06/04/20 04:25 36.5 C 70 18 108/73 96 06/04/20 03:01 18 96 06/04/20 02:10 18 96 06/04/20 01:40 18 94 06/04/20 01:00 16 95 06/03/20 23:43 37 C 81 18 123/76 97 06/03/20 22:50 18 96 06/03/20 22:13 18 96 06/03/20 21:53 18 97 06/03/20 21:10 18 97 06/03/20 20:34 96
[2020-06-04] MEDS: FERROUS SULFATE 325 MG TAB PO SCH (09:26)
[2020-06-04] MEDS: PRENATAL VITAMIN 1 TAB PO SCH (09:26)
[2020-06-04] MEDS: DOCUSATE SODIUM 100 MG CAP PO SCH ×2 (09:26→20:50)
[2020-06-04] MEDS: oxyCODONE/ACETAMINOPHEN 5mg/325mg TAB PO PRN ×3 (09:26→19:30)
[2020-06-04] MEDS: IBUPROFEN 600 MG TAB PO PRN ×3 (09:27→19:29)
[2020-06-04] MEDS: SERTRALINE HCL 50 MG TABLET PO SCH (09:27)
[2020-06-04] MEDS: SIMETHICONE 80 MG CHEW PO SCH ×4 (09:27→20:49)
[2020-06-04] MEDS ORDERED: bisacodyL 5 MG TABEC PO SCH (20:00)
[2020-06-05] MEDS: oxyCODONE/ACETAMINOPHEN 5mg/325mg TAB PO PRN ×3 (00:45→09:16)
[2020-06-05] MEDS: IBUPROFEN 600 MG TAB PO PRN ×3 (00:46→09:16)
--- NOTE | 2020-06-05 05:33 | Obstetrical Progress Note ---
Date of Service June 05, 2020 Assessment & Plan (1) : S/p LTCS for breech presentation, Day 2 - Feels well today. Eating well, voiding well, ambulating well. - Pain well-controlled with ibuprofen 600mg Q4H PRN. - Vital signs reviewed and WNL. - Hemoglobin reviewed. 12.8 --> 11.4 (yesterday). - Blood Type: O+, antibody negative, GBS negative, Rubella Immune, COVID-19 positive (see below) - Continue routine post-op care: encourage ambulation, monitor and control pain with Motrin PRN, continue regular OB diet, monitor lochia - Encourage breast feeding. - Pt counselled on discharge instructions - After discharge, will have 6-wk follow-up with Dr. Law (2) COVID-19: Symptoms started on 05/22, confirmed via rapid test on 05/25 and PCR on 05/27. Patient was intermittently satting to low 90s on 06/03 (87% on one occasion) and had reported worsening of symptoms since onset - was subsequently transferred to COVID unit. Symptoms have since improved and she has been satting >95-96% on RA since 06/03 early afternoon. - now >14 days since onset of symptoms, afebrile, symptoms improved overall - Pt counselled on discharge instructions, as mentioned above - f/u with PCP after discharge - instructed to call a provider and/or go to the ED if she develops worsening SOB and/or if SpO2 is consistently <94% (has pulse ox at home) Admission and Anticipated Discharge Date Admission Date: June 03, 2020 Supervising Physician Co-Signing Physician Notes Resident Physician Supervision Note: I interviewed and examined the patient. Discussed with Dr. Benton and agree with findings and plan as documented in the note. Any exceptions or clarifications are listed here: Doing well this am. respiratory issues are significantly improved, no need for supplemental oxygen. Meeting all criteria for d/c. INstructions reviewed. Plan f/u with pcp in one week. Call with any concerns. Documented By: Columba Ford MD, FACOG Subjective HPI Raiza Rod is a 29 y/o female who is POD #2 following elective c- section delivery for breech presentation at 39 4/7 weeks. She reports feeling well overall this morning. mild abdominal cramping and mild-moderate pain well managed on analgesics. Voiding spontaneously. Tolerating meals overnight without difficulty. Patient has been able to ambulate some. passing gas and no bowel movement. Has persistent lochia with some improvement this morning. Currently . Review of Systems Review of Systems: ROS Denies fever or chills. Denies shortness of breath or cough. Denies chest pain. Denies breast pain. Denies dysuria. Denies leg pain or leg swelling. Denies headache or changes in vision. Physical Exam Physical Exam: General: Alert, oriented. No acute distress. Cardiac: Regular rate and rhythm. No murmurs. Respiratory: Clear to auscultation bilaterally a/p, no wheezes/rales/rhonchi. No increased work of breathing. Symmetrical chest rise. No respiratory distress. Abdomen: Soft, nontender, nondistended. Bowel sounds present. Uterus: Uterine fundus firm, palpable 1 cm below umbilicus. Surgical scar clean and healing well. Lower Extremities: No lower extremity edema or swelling. No deep calf pain. Isa's negative bilaterally. Results & Data ([facility]) Vital Signs (Past 12 Hours) Vital Signs Temp Pulse Resp BP Pulse Ox 06/05/20 04:50 36.6 C 61 16 118/76 96 06/05/20 00:01 36.9 C 85 18 118/76 95 06/04/20 19:40 36.8 C 61 16 124/77 97 Resident Activity Tracking Resident Involvement: Resident Care Provided Care Provided: Adult Hospital Medicine
[2020-06-05] MEDS: FERROUS SULFATE 325 MG TAB PO SCH (08:29)
[2020-06-05] MEDS: SIMETHICONE 80 MG CHEW PO SCH (08:29)
[2020-06-05] MEDS: PRENATAL VITAMIN 1 TAB PO SCH (08:29)
[2020-06-05] MEDS: DOCUSATE SODIUM 100 MG CAP PO SCH (08:29)
[2020-06-05] MEDS: SERTRALINE HCL 50 MG TABLET PO SCH (09:15)
[2020-06-05] MEDS ORDERED: bisacodyL 10 MG SUPP PR PRN (10:10)
--- NOTE | 2020-06-10 17:36 | Discharge Summary ---
Date of Service June 10, 2020 Admission HPI Per Admitting Provider 29 y/o at 39 wga w/ SELAM 06/06/20 by LMP 08/31/19 c/w 1st tri US presents for preop for scheduled primary CS for breech. +FM; denies tx, LOF, VB. Was just dx w/ COVID 05/25 after s/s began 05/22. 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 Hx: G1 at 41 wks, IOL for oligo G2 at 38 wks G3 current Menarche 13, cycles regular last pap ASCUS/HPV- 10/2019, no hx abnl pap otherwise denies hx STI Admission Exam (Per Admitting) Constitutional WD/WN, vitals as above Respiratory normal respiratory effort; no respiratory distress and no labored breathing Genitourinary OB Exam Abdomen: + fundal height (term), + heart tones (130s) and + breech Discharge Data Consultations 06/03/20 05:28 Consult Anesthesiology Stat Procedures Performed Operation Date: 06/03/20 07:30 Actual Procedures p Primary Low Transverse Section - Reny Law MD Hospital Course (1) S/P : Pt presented to L&D with c/o SOB that began on Wednesday (after pre-op appt where she was noting sore throat, cough and no SOB). On L&D, pt noted to be satting 92%, improved to 95-96% with O2. +FM and contractions. She is >10 days from symptom onset, however given change in symptoms which would be deemed worsened than previously, isolation can no longer be discontinued. Discussed w/ anesthesia that would not recommend deferring CS as she is multiparous, breech and already >39 wks. There would be concern that deferring CS may then put her in a more urgent delivery. After discussion w/ anesthesia, CS to be performed in OR1 w/ appropriate precautions/isolation and recover in negative pressure room and pt and aware. BSUS confirmed breech presentation, cat 1 tracing noted. See operative report for delivery details. Patient's postop course was uncomplicated and she was stable for d/c home on POD2. Also stable from COVID standpoint and was planned to f/u w/ PCP for this. Coding Level of Care Code None Diagnoses S/P Z98.891
== END 2020-06-05 13:15 | disposition home or self-care (01) ==
LOC: 4S1 05:38 → EDSTATUS 07:30 → 4W 11:47 → 2S 15:11 → 3E 23:43

== ENCOUNTER 2022-12-23 16:52 | Inpatient (IN) ==
[2022-12-23 17:51] LABS: Appearance Urine Clear (Clear); Bilirubin Urine Negative (Negative); Blood Urine Negative (Negative); Color Urine Yellow; Glucose Urine UA Negative (Negative); Ketones Urine Negative (Negative); Leukocyte Esterase Urine Negative (Negative); Nitrite Urine Negative (Negative); Protein Urine Negative (Negative); Specific Gravity Urine 1.006 (1.000-1.030); Urobilinogen Urine Negative (Negative); pH Urine 7.5 (4.5-7.5)
[2022-12-23 17:53] LABS: Basophils # (auto) 0.04 K/uL (0.00-0.20); Basophils % (auto) 0.3 %; Eosinophils # (auto) 0.08 K/uL (0.00-0.50); Eosinophils % (auto) 0.6 %; Hematocrit (blood only) 42.8 % (37.0-47.0); Immature Granulocytes # (auto) 0.05 K/uL (0.01-0.20); Immature Granulocytes % (auto) 0.4 %; Lymphocytes # (auto) 1.93 K/uL (1.20-3.40); Lymphocytes % (auto) 15.3 %; Mean Corpuscular Hemoglobin 30.1 pg (25.0-34.0); Mean Corpuscular Volume 85.8 fL (80.0-100.0); Mean Platelet Volume 9.1 fL (9.4-12.4); Monocytes # (auto) 0.58 K/uL (0.11-0.59); Monocytes % (auto) 4.6 %; Neutrophils # (auto) 9.96 K/uL (1.40-6.50); Neutrophils % (auto) 78.8 %; Platelet Count 306 K/uL (130-400); RDW Coefficient of Variation 12.4 % (11.5-14.5); RDW Standard Deviation 38.5 fL (36.4-46.3); Red Blood Count 4.99 M/uL (4.20-5.40); White Blood Count 12.64 K/ul (4.8-10.8)
[2022-12-23 18:09] LABS: Pregnancy Test, Serum Negative (Negative)
[2022-12-23] MEDS ORDERED: fentaNYL citrate PF 100 MCG/2 ML VIAL IV STA (18:11)
[2022-12-23] MEDS ORDERED: SODIUM CHLORIDE 0.9% 1,000 ML IV ONE (18:11)
[2022-12-23] MEDS ORDERED: ONDANSETRON INJ 2 MG/ML 2 ML VIAL IV STA (18:11)
--- NOTE | 2022-12-23 18:12 | Emergency Department Note ---
Impression & Plan SBO (small bowel obstruction), Abdominal pain ED Provider Note HISTORY OF PRESENT ILLNESS: Patient is a 32-year-old female presenting with left-sided abdominal pain. Patient reports she has been having "waves" of abdominal pain for the last 24 hours. States the pain is around her periumbilical region and radiates out across her anterior abdomen. Denies any history of abdominal surgeries other than a section. Denies any dysuria or hematuria. Reports nausea but no vomiting. Reports a history of chronic diarrhea but states she has not had a bowel movement today. Denies any recent travel or recent sick contact exposure. She has not taken anything for the pain today. ROS: as above PHYSICAL EXAM: Constitutional: Patient appears in no acute distress. HENT: Head: Normocephalic and atraumatic. Eyes: EOMI, PERRL Mouth/Throat: Mucous membranes moist. Neck: Trachea midline. Neck supple. Cardiovascular: RRR, No murmurs, rubs or gallops. Intact distal pulses. Pulmonary/Chest: No respiratory distress. Breath sounds clear and equal bilaterally. No wheezes or rales. Abdominal: Abdomen soft, no rebound or guarding. Generalized tenderness to palpation. Musculoskeletal: No edema, tenderness or deformity noted. Skin: Warm and dry. No rash, erythema, pallor or cyanosis Psychiatric: Appropriate mood and affect for situation. Neurological: Alert and keenly responsive. CN II-XII grossly intact, moving all extremities equally and fully. MDM: - Vitals signs stable. - History obtained via patient. Patient presents with left-sided abdominal pain. Patient reports she been having intermittent abdominal pain for the last 24 hours. Reports the pain initially started around her periumbilical region and radiates all over her abdomen. Denies any history of abdominal surgeries other than a section. Denies any dysuria or hematuria. Reports nausea but no vomiting. Has a history of Crohn's disease. - Chronic conditions affecting care: Crohn's disease - Differential diagnoses include, but are not limited to: Small bowel obstruc tion; diverticulitis; appendicitis; pyelonephritis - Order placed for continuous cardiac monitoring. At this time, monitor showed rate of 89 bpm with normal sinus rhythm, per my interpretation. - External medical records reviewed. - Laboratory workup interpreted by myself showed slight leukocytosis (WBC 12.64); slight hyponatremia (Na 135); negative hCG; normal lipase - UA negative for infection - CT abdomen/pelvis with IV contrast showed moderate grade small bowel obstruction. - Patient initially given 1L NS, 50 mcg IV fentanyl and 4 mg IV zofran. On reassessment, the patient is complaining of continued pain. Given 4 mg of IV morphine. However, she is crying any significant pain on reassessment. Given 0.5 mg of IV Dilaudid. - Discussion was had with social service agency director about patient's case and need for admission - Hospitalist consulted for admission - [facility] ASSESSMENT AND PLAN: Diagnosis: small bowel obstruction; abdominal pain Plan: admit Past Med/Surg History Medical History (Updated 12/23/22 @ 21:51 by Michaela Pink MD) ADHD Anxiety Crohn's disease Depression Encounter for pre-operative examination History of COVID-June > not hospitalized OCD (obsessive compulsive disorder) Palpitations holter monitor study summer 2019 - [facility] - "skipped beats" - monitoring; no treatment; no medical legal investigator Surgical History History of colonoscopy History of surgery hysteroscopic removal IUD History of wisdom tooth extraction S/P x1 Family History Mother Alcohol abuse Depression Grandmother (Paternal) Stroke Family/Other No problems noted. Grandfather (Paternal) Lung cancer Brother Narcolepsy Other No family history of adverse response to anesthesia Denies family history of Ovarian cancer Breast cancer Colorectal cancer Uterine cancer Social History (Updated 12/22/21 @ 09:09 by Obdulia Huang LPN) Smoking Status: Never smoker Age Started Using Tobacco: 12; Age Quit Using Tobacco: 27; Second Hand Exposure: No; Do You Dip or Chew Tobacco: No; Hx Alcohol Use: No Hx Substance Use: No Preferred Language: Mexican Communication Ability: Effective Gravity Meter Operator Required: No Beliefs That Will Affect Care: None marital status: Single marital status details: radha Patelz (29) [phone] Current Living Situation: Family Current Living Situation Comment: 3 KIDS current occupational status: employed current occupation: [employer] How many Children do You have: 3 Feels Safe at Home: Yes Childhood Exposure to Second-Hand Smoke: Yes Diet: regular caffeine: Yes Dental Care, Regularly: No Physical Activity Frequency: Daily Seatbelt Use: always Sunscreen Use: No Assistive Devices: Glasses Allergies Allergies Allergy/AdvReac Type Severity Reaction Status Date / Time No Known Allergies Allergy Mild Verified 12/23/22 18:16 Home Meds Home Medications Medication Instructions Recorded Confirmed alprazolam 0.5 mg tablet (Xanax) 0.5 mg PO BID 07/20/22 12/23/22 sertraline 100 mg tablet 300 mg PO QAM 07/20/22 12/23/22 cholecalciferol (vitamin D3) 50 50 mcg PO DAILY 12/23/22 12/23/22 mcg (2,000 unit) capsule (Vitamin D3) dextroamphetamine-amphetamine ER 20 mg PO QAM 12/23/22 12/23/22 20 mg 24hr capsule,extend release lamotrigine 25 mg tablet 50 mg PO QA 12/23/22 12/23/22 Results & Data (ED) Vital Signs Vital Signs - 24 hr 12/23/22 17:00 12/23/22 17:28 Temperature 36.6 C Temperature Source Temporal Artery Scan Pulse Rate 92 H Pulse Rate [Right Finger] 88 Respiratory Rate 20 24 Respiratory Effort / Characteristics Non-Labored Non-Labored Spontaneous Respiratory Depth Normal Normal Blood Pressure 110/69 Blood Pressure [Left Arm] 114/75 Blood Pressure Mean 82 Blood Pressure Mean [Left Arm] 88 Pulse Oximetry 100 100 Oxygen Delivery Method Room Air Room Air Sepsis Recent Fever Within 48 Hours No Sepsis New/Unexplained Change in Mental Status N/A Sepsis Action Taken by Nursing No Action Required Laboratory Data 12/23/22 17:36 12/23/22 17:36 Lab Results 12/23/22 12/23/22 12/23/22 Range/Units 17:36 17:36 17:36 WBC 12.64 H (4.8-10.8) K/ul RBC 4.99 (4.20-5.40) M/uL Hgb 15.0 (12.0-16.0) g/dl Hct 42.8 (37.0-47.0) % MCV 85.8 (80.0-100.0) fL MCH 30.1 (25.0-34.0) pg MCHC 35.0 (32.0-36.0) g/dL RDW Std Deviation 38.5 (36.4-46.3) fL RDW Coeff of Rashad 12.4 (11.5-14.5) % Plt Count 306 (130-400) K/uL MPV 9.1 L (9.4-12.4) fL Immature Gran % (Auto) 0.4 % Neut % (Auto) 78.8 % Lymph % (Auto) 15.3 % Mccracken % (Auto) 4.6 % Eos % (Auto) 0.6 % Baso % (Auto) 0.3 % Neut # (Auto) 9.96 H (1.40-6.50) K/uL Lymph # (Auto) 1.93 (1.20-3.40) K/uL Mccracken # (Auto) 0.58 (0.11-0.59) K/uL Eos # (Auto) 0.08 (0.00-0.50) K/uL Baso # (Auto) 0.04 (0.00-0.20) K/uL Immature Gran # (Auto) 0.05 (0.01-0.20) K/uL Sodium 135 L (136-145) mmol/L Potassium 3.8 (3.5-5.1) mmol/L Chloride 102 (98-107) mmol/L Carbon Dioxide 25 (21-32) mmol/L Anion Gap 8 (3-11) BUN 9 (6-23) mg/dl Creatinine 0.80 (0.6-1.2) mg/dl Est Cr Clr Drug Dosing 99.7 ml/min Est GFR ( Amer) 112.3 ml/min Est GFR (Non-Af Amer) 96.9 ml/min BUN/Creatinine Ratio 11.3 (10-20) Glucose 114 H (70-99(Fasting)) mg/dl Calcium 10.6 H (8.6-10.3) mg/dl Total Bilirubin 0.7 (0.2-1.0) mg/dl AST 14 (13-39) U/L ALT 11 (7-52) U/L Alkaline Phosphatase 71 (34-104) U/L Total Protein 8.0 (6.0-8.3) gm/dl Albumin 5.1 H (3.4-5.0) gm/dl Globulin 2.9 (2.5-4.0) gm/dl Albumin/Globulin Ratio 1.8 (0.9-2) Lipase 12 (11-82) U/L HCG, Qual Negative (Negative) Urine Color Urine Appearance (Clear) Urine pH (4.5-7.5) Ur Specific [place] (1.000-1.030) Urine Protein (Negative) Urine Glucose (UA) (Negative) Urine Ketones (Negative) Urine Blood (Negative) Urine Nitrite (Negative) Urine Bilirubin (Negative) Urine Urobilinogen (Negative) Ur Leukocyte Esterase (Negative) 12/23/22 Range/Units 17:36 WBC (4.8-10.8) K/ul RBC (4.20-5.40) M/uL Hgb (12.0-16.0) g/dl Hct (37.0-47.0) % MCV (80.0-100.0) fL MCH (25.0-34.0) pg MCHC (32.0-36.0) g/dL RDW Std Deviation (36.4-46.3) fL RDW Coeff of Rashad (11.5-14.5) % Plt Count (130-400) K/uL MPV (9.4-12.4) fL Immature Gran % (Auto) % Neut % (Auto) % Lymph % (Auto) % Mccracken % (Auto) % Eos % (Auto) % Baso % (Auto) % Neut # (Auto) (1.40-6.50) K/uL Lymph # (Auto) (1.20-3.40) K/uL M[place]racken # (Auto) (0.11-0.59) K/uL Eos # (Auto) (0.00-0.50) K/uL Baso # (Auto) (0.00-0.20) K/uL Immature Gran # (Auto) (0.01-0.20) K/uL Sodium (136-145) mmol/L Potassium (3.5-5.1) mmol/L Chloride (98-107) mmol/L Carbon Dioxide (21-32) mmol/L Anion Gap (3-11) BUN (6-23) mg/dl Creatinine (0.6-1.2) mg/dl Est Cr Clr Drug Dosing ml/min Est GFR ( Amer) ml/min Est GFR (Non-Af Amer) ml/min BUN/Creatinine Ratio (10-20) Glucose (70-99(Fasting)) mg/dl Calcium (8.6-10.3) mg/dl Total Bilirubin (0.2-1.0) mg/dl AST (13-39) U/L ALT (7-52) U/L Alkaline Phosphatase (34-104) U/L Total Protein (6.0-8.3) gm/dl Albumin (3.4-5.0) gm/dl Globulin (2.5-4.0) gm/dl Albumin/Globulin Ratio (0.9-2) Lipase (11-82) U/L HCG, Qual (Negative) Urine Color Yellow Urine Appearance Clear (Clear) Urine pH 7.5 (4.5-7.5) Ur Specific [place] 1.006 (1.000-1.030) Urine Protein Negative (Negative) Urine Glucose (UA) Negative (Negative) Urine Ketones Negative (Negative) Urine Blood Negative (Negative) Urine Nitrite Negative (Negative) Urine Bilirubin Negative (Negative) Urine Urobilinogen Negative (Negative) Ur Leukocyte Esterase Negative (Negative) Administered Medications Discontinued Medications Fentanyl Citrate (Fentanyl Citrate Pf 100 Mcg/2 Ml Vial) 50 mcg IV NOW STA Stop: 12/23/22 18:12 Last Admin: 12/23/22 18:16 Dose: 50 mcg Documented By: SKYLAR Hydromorphone HCl (Hydromorphone Inj 0.5 Mg/0.5 Ml Syr) 0.5 mg IV NOW STA Stop: 12/23/22 21:34 Last Admin: 12/23/22 21:46 Dose: 0.5 mg Documented By: SKYLAR Sodium Chloride (Nss) 1,000 mls @ 999 mls/hr IV .Q1H1M ONE Stop: 12/23/22 19:11 Last Infusion: 12/23/22 19:23 Dose: 0 mls/hr Documented By: Admin: 12/23/22 18:18 Dose: 999 mls/hr Documented By: SKYLAR Ioversol (Optiray 320 500ml) 94 ml IV ONCE ONE Stop: 12/23/22 19:05 Last Admin: 12/23/22 19:04 Dose: 94 ml Documented By: PLW Morphine Sulfate (Morphine Sulfate 4 Mg/Ml 1 Ml Carp\\Vial) 4 mg IV NOW STA Stop: 12/23/22 19:57 Last Admin: 12/23/22 19:59 Dose: 4 mg Documented By: SKYLAR Ondansetron HCl (Ondansetron Inj 2 Mg/Ml 2 Ml Vial) 4 mg IV NOW STA Stop: 12/23/22 18:12 Last Admin: 12/23/22 18:16 Dose: 4 mg Documented By: SKYLAR Imaging Data Radiologist's Impression: Abdomen/Pelvis CT 12/23/22 18:11 Exam(s): CT ABDOMEN + PELVIS With Contrast IV Amt: 94 ml opti 320 EXAM: CT Abdomen and Pelvis With Intravenous Contrast CLINICAL HISTORY: Reason for exam: abdominal pain. TECHNIQUE: Axial computed tomography images of the abdomen and pelvis with intravenous contrast. CTDI is 25.51 mGy and DLP is 1213.99 mGy-cm. Automated exposure control was utilized for the study. A dose lowering technique was utilized adhering to the principles of ALARA. CONTRAST: Patient received 94 ml opti 320 of IV contrast COMPARISON: CT abdomen pelvis 11/28/2009. FINDINGS: Lung bases: Clear. Liver: Subtle lucency posteriorly near the diaphragm, stable and incidental Gallbladder and bile ducts: Normal gallbladder. No ductal dilation. Pancreas: No ductal dilation. Spleen: Unremarkable. Adrenals: Unremarkable. Kidneys and ureters: No pyelonephritis or hydronephrosis. Stomach and bowel: Moderate dilated small bowel, with transition in the right lower quadrant, compatible with moderate grade small bowel obstruction. Appendix: Normal. Intraperitoneal space: Trace free fluid in the pelvis. No free air or significant ascites. Bones/joints: No acute fracture. Soft tissues: Unremarkable. Vasculature: No aortic aneurysm. Lymph nodes: No enlarged lymph nodes. Bladder: No stones. Reproductive: Normal for age, with presumed dominant follicular cyst on the left measuring 2.5 cm. IUD in good position. IMPRESSION: 1. Moderate grade small bowel obstruction. 2. Trace ascites in the pelvis is nonspecific, may relate to bowel obstruction. 3. Presumed physiologic, dominant cyst of the left ovary measuring 2.5 cm. Electronically signed by: Sujatha Carrion M.D. 12/23/22 20:12 PM Discharge Plan Visit Data Chief Complaint: Abdominal Pain Stated Complaint: ABD PAIN, AND BACK PAIN ED Provider: Michaela Pink Discharge Problem: SBO (small bowel obstruction), Abdominal pain Forms Stand Alone Forms: My [facility] Prescriptions Prescriptions: No Action sertraline 100 mg tablet 300 mg PO QAM alprazolam [Xanax] 0.5 mg tablet 0.5 mg PO BID lamotrigine 25 mg tablet 50 mg PO QAM dextroamphetamine-amphetamine 20 mg capsule,extended release 24hr 20 mg PO QAM cholecalciferol (vitamin D3) [Vitamin D3] 50 mcg (2,000 unit) Capsule 50 mcg PO DAILY Referrals Referrals: Bridgette Olsen MD [Primary Care Provider] -
[2022-12-23 18:24] LABS: Alanine Aminotransferase 11 U/L (7-52); Albumin Globulin Ratio 1.8 (0.9-2); Albumin Level 5.1 gm/dl (3.4-5.0); Alkaline Phosphatase 71 U/L (34-104); Anion Gap 8 (3-11); Aspartate Aminotransferase 14 U/L (13-39); BUN Creatinine Ratio 11.3 (10-20); Bilirubin,Total 0.7 mg/dl (0.2-1.0); Blood Urea Nitrogen 9 mg/dl (6-23); Calcium 10.6 mg/dl (8.6-10.3); Carbon Dioxide 25 mmol/L (21-32); Chloride 102 mmol/L (98-107); Creatinine Clr Calc Pharmacy 99.7 ml/min; Est GFR (African American) 112.3 ml/min; Est GFR (Non-African American) 96.9 ml/min; Globulin 2.9 gm/dl (2.5-4.0); Glucose 114 mg/dl (70-99(Fasting)); Lipase 12 U/L (11-82); Potassium 3.8 mmol/L (3.5-5.1); Sodium 135 mmol/L (136-145)
[2022-12-23] MEDS ORDERED: OPTIRAY 320 500ml IV ONE (19:04)
[2022-12-23] MEDS ORDERED: MoRPHine SULFATE 4 MG/ML 1 ML CARP\\VIAL IV STA (19:56)
--- NOTE | 2022-12-23 20:13 | CT Scan Report ---
Exam(s): CT ABDOMEN + PELVIS With Contrast IV Amt: 94 ml opti 320 EXAM: CT Abdomen and Pelvis With Intravenous Contrast CLINICAL HISTORY: Reason for exam: abdominal pain. TECHNIQUE: Axial computed tomography images of the abdomen and pelvis with intravenous contrast. CTDI is 25.51 mGy and DLP is 1213.99 mGy-cm. Automated exposure control was utilized for the study. A dose lowering technique was utilized adhering to the principles of ALARA. CONTRAST: Patient received 94 ml opti 320 of IV contrast COMPARISON: CT abdomen pelvis 11/28/2009. FINDINGS: Lung bases: Clear. Liver: Subtle lucency posteriorly near the diaphragm, stable and incidental Gallbladder and bile ducts: Normal gallbladder. No ductal dilation. Pancreas: No ductal dilation. Spleen: Unremarkable. Adrenals: Unremarkable. Kidneys and ureters: No pyelonephritis or hydronephrosis. Stomach and bowel: Moderate dilated small bowel, with transition in the right lower quadrant, compatible with moderate grade small bowel obstruction. Appendix: Normal. Intraperitoneal space: Trace free fluid in the pelvis. No free air or significant ascites. Bones/joints: No acute fracture. Soft tissues: Unremarkable. Vasculature: No aortic aneurysm. Lymph nodes: No enlarged lymph nodes. Bladder: No stones. Reproductive: Normal for age, with presumed dominant follicular cyst on the left measuring 2.5 cm. IUD in good position. IMPRESSION: 1. Moderate grade small bowel obstruction. 2. Trace ascites in the pelvis is nonspecific, may relate to bowel obstruction. 3. Presumed physiologic, dominant cyst of the left ovary measuring 2.5 cm. Electronically signed by: Sujatha Carrion M.D. 12/23/22 20:12 PM
[2022-12-23] MEDS ORDERED: HYDROmorphone INJ 0.5 MG/0.5 ML SYR IV STA (21:33)
--- NOTE | 2022-12-23 21:45 | History & Physical Report ---
Date of Service December 23, 2022 Assessment & Plan (1) SBO (small bowel obstruction): Plan: 32yo female presenting with moderate grade SBO. Patient with history of c- section, previously thought to have IBD/Crohns based of terminal ileum biopsy results, now dx of IBD is being reconsidered. She currently follows with GI for chronic diarrhea. No prior bowel obstructions. Lactate normal at 0.6 -Admit to medical -Check CRP -Keep NPO -IVF hydration with LR at 125mL/hr x 2L -Electrolyte repletion as needed -Dilaudid PRN pain -Zofran PRN nausea -Appreciate General Surgery consultation -Appreciate GI consultation. (2) Depression: Plan: Patient with history of Depression/Anxiety as well as OCD and ADHD -Continue Alprazolam for anxiety -Continue Adderall for ADHD -Continue Lamictal -Continue Sertraline History of Present Illness Chief Complaint: abdominal pain Primary Care Provider: Bridgette Olsen MD Raiza Rod is a 32yo female with history of previously diagnosed Crohns disease, ADHD and chronic diarrhea presenting with abdominal pain. Patient was in her usual state of health until this morning when she developed mid-abdominal pain. The pain was first mild and intermittent but throughout the day it has become more severe and constant. Some mild abdominal distention Pain is mid-abdomen/eduardo-umbilical, 10/10 in severity with radiation into bilateral flanks and back. No nausea or vomiting, no fever/chills, CP/Cough or SOB. No melena or hematochezia. Last BM was yesterday AM - firm consistency which is ABNORMAL for the patient as she has chronic diarrhea. No flatus. In regards to patient's Crohn's disease. She was initially diagnosed in 01/2021 after having a colonoscopy for chronic diarrhea. She had a biopsy performed which revealed moderate acute and chronic ileitis and was diagnosed with Crohns disease. She was prescribed Budesonide. She had another colonoscopy in August 2021 which was normal. Biopsies performed which were normal as well. Patient thought to be in remission from her Crohns. She has had additional workup for her diarrhea to include a fecal calprotectin which was WNL as well as an MRE which was unremarkable as well. Thought possibly that patient does not, in fact, have Crohns disease - possibly that her initial biopsy was secondary to NSAID/Medication use. She has never had a Crohns "flare" before. No history of prior bowel obstruction. In the ER she is afebrile, HD stable. In pain - relieved in part with Dilaudid IV Evaluated by General Surgery Allergies Allergy/AdvReac Type Severity Reaction Status Date / Time No Known Allergies Allergy Mild Verified 12/23/22 18:16 Home Medications Medication Instructions Recorded Confirmed Type alprazolam 0.5 mg tablet (Xanax) 0.5 mg PO BID 07/20/22 12/23/22 History sertraline 100 mg tablet 300 mg PO QAM 07/20/22 12/23/22 History cholecalciferol (vitamin D3) 50 50 mcg PO DAILY 12/23/22 12/23/22 History mcg (2,000 unit) capsule (Vitamin D3) dextroamphetamine-amphetamine ER 20 mg PO QAM 12/23/22 12/23/22 History 20 mg 24hr capsule,extend release lamotrigine 25 mg tablet 50 mg PO QAM 12/23/22 12/23/22 History Past Med/Surg History Medical History ADHD Anxiety Crohn's disease Depression Encounter for pre-operative examination History of COVID-June > not hospitalized OCD (obsessive compulsive disorder) Palpitations 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 Grandfather (Paternal) Lung cancer Brother Narcolepsy Other No family history of adverse response to anesthesia Denies family history of Ovarian cancer Breast cancer Colorectal cancer Uterine cancer Social History Smoking Status: Former smoker Tobacco Type: Cigarettes Age Started Using Tobacco: 12; Age Quit Using Tobacco: 27; Second Hand Exposure: No; Do You Dip or Chew Tobacco: No; Tobacco Cessation Education Requested by Patient: No Hx Alcohol Use: No Hx Substance Use: No Preferred Language: Vietnamese Communication Ability: Effective Fancy Wire Drawer Required: No Beliefs That Will Affect Care: None marital status: Single marital status details: radha Oquendo (29) [phone] Current Living Situation: Alone and Family Current Living Situation Comment: has young children current occupational status: employed current occupation: [email or web address] How many Children do You have: 3 Other Information That Helps Us Care for You: No Feels Safe at Home: Yes Safety Concerns: Feels Safe At This Time Childhood Exposure to Second-Hand Smoke: Yes Diet: regular caffeine: Yes Dental Care, Regularly: No Physical Activity Frequency: Daily Seatbelt Use: always Sunscreen Use: No Assistive Devices: None Review of Systems Review of Systems: All systems reviewed & are unremarkable except as noted in HPI & below Physical Exam Physical Exam: General: patient with abdominal pain Skin: warm, dry, intact, no rashes or lesions HEENT: NC/AT, PERRL, EOMI, anicteric sclera, conjunctiva without injection, external ear normal to inspection and nontender, nares patent, moist mucus membranes, dentition intact, no oropharyngeal lesions, neck supple, trachea midline, no LAD, no thyromegaly, no JVD Heart: +S1/S2, regular, no m/r/g Lungs: equal air entry bilaterally, no rales/rhonchi/wheezes Abd: +BS diminished, soft, non-distended, diffusely tender with some voluntary guarding, no rebound Ext: warm, 2+ pulses in UE/LE bilaterally, no clubbing/cyanosis or edema Neuro: nonfocal, patient AA&O x 4, speech intact, no facial droop, moving all extremities on command with equal strength 5/5 Results & Data Results & Data Vital Signs (Past 12 Hours) Vital Signs Temp Pulse Pulse Resp BP BP Pulse Ox 12/23/22 17:28 88 24 114/75 100 12/23/22 17:00 36.6 C 92 H 20 110/69 100 O2 Del Method 12/23/22 17:28 Room Air 12/23/22 17:00 Room Air Laboratory Results Laboratory Results WBC 12.64 K/ul (4.8-10.8) H 12/23/22 17:36 RBC 4.99 M/uL (4.20-5.40) 12/23/22 17:36 Hgb 15.0 g/dl (12.0-16.0) 12/23/22 17:36 Hct 42.8 % (37.0-47.0) 12/23/22 17:36 MCV 85.8 fL (80.0-100.0) 12/23/22 17:36 MCH 30.1 pg (25.0-34.0) 12/23/22 17:36 MCHC 35.0 g/dL (32.0-36.0) 12/23/22 17:36 RDW Std Deviation 38.5 fL (36.4-46.3) 12/23/22 17:36 RDW Coeff of Rashad 12.4 % (11.5-14.5) 12/23/22 17:36 Plt Count 306 K/uL (130-400) 12/23/22 17:36 MPV 9.1 fL (9.4-12.4) L 12/23/22 17:36 Immature Gran % (Auto) 0.4 % 12/23/22 17:36 Neut % (Auto) 78.8 % 12/23/22 17:36 Lymph % (Auto) 15.3 % 12/23/22 17:36 Bladen % (Auto) 4.6 % 12/23/22 17:36 Eos % (Auto) 0.6 % 12/23/22 17:36 Baso % (Auto) 0.3 % 12/23/22 17:36 Neut # (Auto) 9.96 K/uL (1.40-6.50) H 12/23/22 17:36 Lymph # (Auto) 1.93 K/uL (1.20-3.40) 12/23/22 17:36 Bladen # (Auto) 0.58 K/uL (0.11-0.59) 12/23/22 17:36 Eos # (Auto) 0.08 K/uL (0.00-0.50) 12/23/22 17:36 Baso # (Auto) 0.04 K/uL (0.00-0.20) 12/23/22 17:36 Immature Gran # (Auto) 0.05 K/uL (0.01-0.20) 12/23/22 17:36 ESR 14 mm/hr (0-20) 12/23/22 17:36 Sodium 135 mmol/L (136-145) L 12/23/22 17:36 Potassium 3.8 mmol/L (3.5-5.1) 12/23/22 17:36 Chloride 102 mmol/L (98-107) 12/23/22 17:36 Carbon Dioxide 25 mmol/L (21-32) 12/23/22 17:36 Anion Gap 8 (3-11) 12/23/22 17:36 BUN 9 mg/dl (6-23) 12/23/22 17:36 Creatinine 0.80 mg/dl (0.6-1.2) 12/23/22 17:36 Est Cr Clr Drug Dosing 99.7 ml/min 12/23/22 17:36 Est GFR ( Amer) 112.3 ml/min 12/23/22 17:36 Est GFR (Non-Af Amer) 96.9 ml/min 12/23/22 17:36 BUN/Creatinine Ratio 11.3 (10-20) 12/23/22 17:36 Glucose 114 mg/dl (70-99(Fasting)) H 12/23/22 17:36 Lactate 0.6 mmol/L (0.4-2.0) 12/23/22 23:12 Calcium 10.6 mg/dl (8.6-10.3) H 12/23/22 17:36 Phosphorus 1.8 mg/dl (2.5-4.9) L 12/23/22 17:36 Magnesium 1.8 mg/dl (1.7-2.4) 12/23/22 17:36 Total Bilirubin 0.7 mg/dl (0.2-1.0) 12/23/22 17:36 AST 14 U/L (13-39) 12/23/22 17:36 ALT 11 U/L (7-52) 12/23/22 17:36 Alkaline Phosphatase 71 U/L (34-104) 12/23/22 17:36 C-Reactive Protein < 0.50 mg/dl (0-0.5) 12/23/22 17:36 Total Protein 8.0 gm/dl (6.0-8.3) 12/23/22 17:36 Albumin 5.1 gm/dl (3.4-5.0) H 12/23/22 17:36 Globulin 2.9 gm/dl (2.5-4.0) 12/23/22 17:36 Albumin/Globulin Ratio 1.8 (0.9-2) 12/23/22 17:36 Lipase 12 U/L (11-82) 12/23/22 17:36 HCG, Qual Negative (Negative) 12/23/22 17:36 Urine Color Yellow 12/23/22 17:36 Urine Appearance Clear (Clear) 12/23/22 17:36 Urine pH 7.5 (4.5-7.5) 12/23/22 17:36 Ur Specific Harriet 1.006 (1.000-1.030) 12/23/22 17:36 Urine Protein Negative (Negative) 12/23/22 17:36 Urine Glucose (UA) Negative (Negative) 12/23/22 17:36 Urine Ketones Negative (Negative) 12/23/22 17:36 Urine Blood Negative (Negative) 12/23/22 17:36 Urine Nitrite Negative (Negative) 12/23/22 17:36 Urine Bilirubin Negative (Negative) 12/23/22 17:36 Urine Urobilinogen Negative (Negative) 12/23/22 17:36 Ur Leukocyte Esterase Negative (Negative) 12/23/22 17:36 SARS-CoV-2, RNA, NAAT NEGATIVE (NEGATIVE) 12/23/22 22:21 Impressions Abdomen/Pelvis CT 12/23/22 18:11 Exam(s): CT ABDOMEN + PELVIS With Contrast IV Amt: 94 ml opti 320 EXAM: CT Abdomen and Pelvis With Intravenous Contrast CLINICAL HISTORY: Reason for exam: abdominal pain. TECHNIQUE: Axial computed tomography images of the abdomen and pelvis with intravenous contrast. CTDI is 25.51 mGy and DLP is 1213.99 mGy-cm. Automated exposure control was utilized for the study. A dose lowering technique was utilized adhering to the principles of ALARA. CONTRAST: Patient received 94 ml opti 320 of IV contrast COMPARISON: CT abdomen pelvis 11/28/2009. FINDINGS: Lung bases: Clear. Liver: Subtle lucency posteriorly near the diaphragm, stable and incidental Gallbladder and bile ducts: Normal gallbladder. No ductal dilation. Pancreas: No ductal dilation. Spleen: Unremarkable. Adrenals: Unremarkable. Kidneys and ureters: No pyelonephritis or hydronephrosis. Stomach and bowel: Moderate dilated small bowel, with transition in the right lower quadrant, compatible with moderate grade small bowel obstruction. Appendix: Normal. Intraperitoneal space: Trace free fluid in the pelvis. No free air or significant ascites. Bones/joints: No acute fracture. Soft tissues: Unremarkable. Vasculature: No aortic aneurysm. Lymph nodes: No enlarged lymph nodes. Bladder: No stones. Reproductive: Normal for age, with presumed dominant follicular cyst on the left measuring 2.5 cm. IUD in good position. IMPRESSION: 1. Moderate grade small bowel obstruction. 2. Trace ascites in the pelvis is nonspecific, may relate to bowel obstruction. 3. Presumed physiologic, dominant cyst of the left ovary measuring 2.5 cm. Electronically signed by: Sujatha Carrion M.D. 12/23/22 20:12 PM PG Care Time/CCT Total # of Minutes Spent Total Time Spent with Patient: Total time spent is greater than 50% in coordination of care (as documented) at patient's floor/unit and/or counseling patient: Coding Level of Care Code 56988 INT INP/OBS CARE 2/55MIN Diagnoses SBO (small bowel obstruction) K56.609 Depression F32.9
--- NOTE | 2022-12-23 22:17 | Surgery Consultation ---
Date of Consultation December 23, 2022 Assessment & Plan (1) SBO (small bowel obstruction): Patient is being admitted on the medical service. We recommend proceeding as follows: Patient does appear to have small bowel obstruction on CT scan. The question is whether the patient has adhesions from her previous causing a small bowel obstruction or if she does indeed have Crohn's disease and some inflammation of her small potentially causing small bowel obstruction Analgesics to be provided Antiemetics to be provided IV fluids to be provided for hydration Patient should be kept n.p.o. Serial labs to be followed I did discuss with the patient the modality of an NG tube. As her abdomen is nondistended and she has not had any emesis she would prefer to hold on this modality at this time. I did discuss with her that she has a worsening clinical course and NG tube may need to be placed and she expressed understanding As we continue to entertain the possibility of Crohn's disease as a possible etiology of her complaints the medical service notes that they are enlisting the help of gastroenterology in this case. We will await their recommendations Additional recommendations will be forthcoming based on input from GI and her clinical course as it unfolds Addendum 5:40:am Patient was revisited at bedside at approximately 5:35 AM this morning. The patient notes that her abdominal pain may be slightly better. She continues to have what she describes as waves of cramp-like abdominal pain similar to what she noted in the emergency department. She feels as though her stomach is rumbling and feels as though she needs to pass flatus but has not done so yet. She also has not had a bowel movement since admission. In addition, the patient has not had any nausea or vomiting since admission. As noted in the original surgical consultation we will continue with n.p.o. status and IV fluid for hydration and await gastroenterology input. History of Present Illness Reason for Consultation: Small bowel obstruction History of Present Illness This is a 32-year-old female who presented to the emergency department secondary to abdominal pain. Patient says that she was in her usual state of health feeling fine yesterday when she had sudden onset of abdominal pain today. She notes that the pain is primary located in the central abdomen. She notes it is worse with movement and was palliated with medicines that were administered in the emergency department. Since her pain began she denies any nausea or vomiting. She has not had any fevers. She said that she did have a bowel movement yesterday which was a semiformed stool, which was somewhat odd for her as she usually has diarrhea/loose stools. She denies any melena. She denies a ny hematochezia or bright blood per rectum. Since arrival to the emergency department she has not passed any flatus. Her most recent oral intake was at approximate 11:30 AM today. Previous abdominal surgeries she has had include a . The patient does report a questionable history of Crohn's disease. The patient notes that between 2019 and 2020 she was having episodes of persistent nonbloody diarrhea. Because of this she was seen by gastroenterology where she had both upper and lower endoscopies which were performed on 01/27/2021. Her upper endoscopy revealed a normal-appearing esophagus and a normal-appearing duodenum but the patient was noted to have several erosions noted in her stomach. She did have biopsies taken which were negative for H. pylori and no other significant pathology was noted. On her lower endoscopy her terminal ileum and colon appeared to be normal and biopsies performed did show acute on chronic inflammation of the ileum. The patient notes that she was treated with steroids she believes for approximately 6 months. She said her symptomatology improved somewhat so she was taken off steroids and she did have repeat colonoscopy on 08/19/2021. On this study the terminal ileum and the colon did appear normal and biopsies were performed without any significant pathology. Of note, due to her questionable history of Crohn's disease she has not taken any disease modifying agents for this condition. As the diagnosis of Crohn's disease was not definitively ascertained she notes that they are now questioning whether she may have an element of irritable bowel syndrome. I did asked the patient if she had any other systemic symptoms around the time it was felt she had Crohn's disease such as uveitis which she denies. She did however report that she did have some generalized arthralgias particularly in her wrists and hands. Since arrival to the hospital the patient has had labs and imaging which independent reviewed. CT scan abdomen pelvis showed the patient had moderately dilated small bowel with a transition point in the right lower quadrant which was felt to be compatible with a moderate grade small bowel obstruction. Her appendix appeared normal on this study. There is no free air or ascites. Labs include a CBC her white blood cell count was 12.6. Hemoglobin and hematocrit were both within normal range and platelet count was normal. Chemistry profile showed sodium is 135 with a normal potassium. BUN and creatinine were both within normal range. Patient had no elevation of her LFTs or lipase. A test was negative and a urinalysis was not indicative of infection. At the time of my interview the patient was resting in bed. She did have some on and off abdominal pain but was not in any distress. Allergies Allergy/AdvReac Type Severity Reaction Status Date / Time No Known Allergies Allergy Mild Verified 12/23/22 18:16 Home Medications Medication Instructions Recorded Confirmed Type alprazolam 0.5 mg tablet (Xanax) 0.5 mg PO BID 07/20/22 12/23/22 History sertraline 100 mg tablet 300 mg PO QAM 07/20/22 12/23/22 History cholecalciferol (vitamin D3) 50 50 mcg PO DAILY 12/23/22 12/23/22 History mcg (2,000 unit) capsule (Vitamin D3) dextroamphetamine-amphetamine ER 20 mg PO QAM 12/23/22 12/23/22 History 20 mg 24hr capsule,extend release lamotrigine 25 mg tablet 50 mg PO QAM 12/23/22 12/23/22 History Patient History Medical History ADHD Anxiety Crohn's disease Depression Encounter for pre-operative examination History of COVID-June > not hospitalized OCD (obsessive compulsive disorder) Palpitations holter monitor study summer 2019 - [facility] - "skipped beats" - monitoring; no treatment; 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 Grandfather (Paternal) Lung cancer Brother Narcolepsy Other No family history of adverse response to anesthesia Denies family history of Ovarian cancer Breast cancer Colorectal cancer Uterine cancer Social History Smoking Status: Former smoker Tobacco Type: Cigarettes Age Started Using Tobacco: 12; Age Quit Using Tobacco: 27; Second Hand Exposure: No; Do You Dip or Chew Tobacco: No; Tobacco Cessation Education Requested by Patient: No Hx Alcohol Use: No Hx Substance Use: No Preferred Language: Irish Communication Ability: Effective Welt Rander Required: No Beliefs That Will Affect Care: None marital status: Single marital status details: radha Oquendo (29) [phone] Current Living Situation: Alone and Family Current Living Situation Comment: has young children current occupational status: employed current occupation: [email or web address] How many Children do You have: 3 Other Information That Helps Us Care for You: No Feels Safe at Home: Yes Safety Concerns: Feels Safe At This Time Childhood Exposure to Second-Hand Smoke: Yes Diet: regular caffeine: Yes Dental Care, Regularly: No Physical Activity Frequency: Daily Seatbelt Use: always Sunscreen Use: No Assistive Devices: None Review of Systems Constitutional: no fever Eyes: no eye pain Ear, Nose, Mouth, Throat: no ear pain Respiratory: no cough Cardiovascular: no chest pain Gastrointestinal: as per Subjective / HPI Genitourinary: no dysuria Musculoskeletal: no back pain Integumentary: no rash Neurologic: no localized weakness Physical Exam Constitutional: WD/WN, vitals as above Eyes: no conjunctival abnormality ENMT: Ears: no hearing impairment and no external ear abnormality Mouth: no oropharynx abnormality Neck: trachea midline Respiratory: normal respiratory effort; no respiratory distress and no labored breathing Cardiovascular: Rate/Rhythm: regular rate and regular rhythm Gastrointestinal (Abdomen): Abdomen is soft and nondistended. There is no rebound tenderness or guarding but patient did have pain with palpation in a generalized fashion which appear to be greatest in the periumbilical region. Musculoskeletal: No calf tenderness Skin: no rashes Neurologic: moves all extremities Psychiatric: A+Ox3, euthymic affect Results & Data Vital Signs (Past 12 Hours) Vital Signs Temp Pulse Pulse Resp BP BP Pulse Ox 12/23/22 17:28 88 24 114/75 100 12/23/22 17:00 36.6 C 92 H 20 110/69 100 O2 Del Method 12/23/22 17:28 Room Air 12/23/22 17:00 Room Air PG Care Time/CCT Total # of Minutes Spent Total Time Spent with Patient: Total time spent is greater than 50% in coordination of care (as documented) at patient's floor/unit and/or counseling patient: Coding Level of Care Code 61133 IN/OBS CONSULT LVL 5,80M Diagnoses SBO (small bowel obstruction) K56.609
[2022-12-24] MEDS ORDERED: HYDROmorphone INJ 0.5 MG/0.5 ML SYR IV PRN (00:34)
[2022-12-24 01:07] LABS: C Reactive Protein < 0.50 mg/dl (0-0.5); Magnesium 1.8 mg/dl (1.7-2.4); Phosphorus 1.8 mg/dl (2.5-4.9)
[2022-12-24] MEDS: LACTATED RINGER'S 1,000 ML IV SCH ×2 (01:19→09:19)
[2022-12-24] MEDS: HYDROmorphone INJ 0.5 MG/0.5 ML SYR IV PRN ×2 (01:22→04:26)
[2022-12-24] MEDS: ONDANSETRON INJ 2 MG/ML 2 ML VIAL IV PRN (06:12)
[2022-12-24 07:08] LABS: Hematocrit (blood only) 37.3 % (37.0-47.0); Hemoglobin 12.3 g/dl (12.0-16.0); Mean Corpuscular Hemoglobin 29.6 pg (25.0-34.0); Mean Corpuscular Volume 89.9 fL (80.0-100.0); Mean Platelet Volume 9.3 fL (9.4-12.4); Platelet Count 236 K/uL (130-400); RDW Coefficient of Variation 12.7 % (11.5-14.5); RDW Standard Deviation 41.3 fL (36.4-46.3); Red Blood Count 4.15 M/uL (4.20-5.40); White Blood Count 7.96 K/ul (4.8-10.8)
[2022-12-24 07:26] LABS: Calcium 8.8 mg/dl (8.6-10.3); Potassium 4.3 mmol/L (3.5-5.1)
[2022-12-24 07:32] LABS: BUN Creatinine Ratio 9.8 (10-20); Creatinine Clr Calc Pharmacy 97.1 ml/min
[2022-12-24] MEDS: ACETAMINOPHEN 325 MG TAB PO PRN (08:10)
--- NOTE | 2022-12-24 09:49 | Gastrointestinal Consultation ---
Date of Consultation December 24, 2022 Assessment & Plan (1) SBO (small bowel obstruction): -Treatment of SBO per general surgery -Obtain CRP -Obtain stool calprotectin when patient begins moving her bowels -Plan for colonoscopy as an outpatient in the coming weeks when SBO resolves -Supportive care per primary team Supervising Physician Co-Signing Physician Notes Agree with DEMETRIO Be as above Abd: Tender, slightly distended Continue supportive care Repeat colonoscopy as outpatient Check KUB in the AM History of Present Illness Reason for Consultation: SBO, possible history of Crohn's Disease Attending Physician: Kirby Lopez History of Present Illness Patient is a 32 yo female with a history of ileitis, ADHD, & chronic diarrhea. Patient notes she abruptly developed mid abdominal pain prior to presenting to the ED. Her pain was intermittent, but as the day went on she noted that it was more significant which prompted her to finally present. She denied fever, chills, nausea, vomiting, or other associated concerning bowel symptoms. She does not a formed stool the day prior which she notes is not typical for her as she struggles with chronic diarrhea. In 2015 patient had a prior colonoscopy that was unremarkable. I have not personally been previously involved in her GI care, but from chart review it appears she established with Dr. Hi in 2020. In 2020, she had a repeat colonoscopy for diarrhea that was endoscopically normal. Biopsies of the ileum indicated chronic inflammation and an initial diagnosis of Crohn's was suspected by Dr. Hi, however due to negative stool calprotectin, negative MRE, there was suspicion that this was actually caused by NSAID use. The patient does not recall using a lot of NSAIDs at that time or now. A repeat colonoscopy was obtained in August 2021 and was unremarkable endoscopically and histologically. She had been treated with Budesonide for several months in the interim. She has a history of abdominopelvic surgery (c section). CT abdomen/pelvis in the ED indicated a moderate small bowel obstruction. General surgery is following. GI asked to clarify her possible Crohn's history. No pertinent family history. Allergies Allergy/AdvReac Type Severity Reaction Status Date / Time No Known Allergies Allergy Mild Verified 12/23/22 18:16 Home Medications Medication Instructions Recorded Confirmed Type alprazolam 0.5 mg tablet (Xanax) 0.5 mg PO BID 07/20/22 12/23/22 History sertraline 100 mg tablet 300 mg PO QAM 07/20/22 12/23/22 History cholecalciferol (vitamin D3) 50 50 mcg PO DAILY 12/23/22 12/23/22 History mcg (2,000 unit) capsule (Vitamin D3) dextroamphetamine-amphetamine ER 20 mg PO QAM 12/23/22 12/23/22 History 20 mg 24hr capsule,extend release lamotrigine 25 mg tablet 50 mg PO QAM 12/23/22 12/23/22 History Patient History Medical History ADHD Anxiety Crohn's disease Depression Encounter for pre-operative examination History of COVID-June > not hospitalized OCD (obsessive compulsive disorder) Palpitations 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 Grandfather (Paternal) Lung cancer Brother Narcolepsy Other No family history of adverse response to anesthesia Denies family history of Ovarian cancer Breast cancer Colorectal cancer Uterine cancer Social History Smoking Status: Former smoker Tobacco Type: Cigarettes Age Started Using Tobacco: 12; Age Quit Using Tobacco: 27; Second Hand Exposure: No; Do You Dip or Chew Tobacco: No; Tobacco Cessation Education Requested by Patient: No Hx Alcohol Use: No Hx Substance Use: No Preferred Language: Namibian Communication Ability: Effective Railroader Required: No Beliefs That Will Affect Care: None marital status: Single marital status details: radha Patelz (29) [phone] Current Living Situation: Alone and Family Current Living Situation Comment: has young children current occupational status: employed current occupation: [employer] How many Children do You have: 3 Other Information That Helps Us Care for You: No Feels Safe at Home: Yes Safety Concerns: Feels Safe At This Time Childhood Exposure to Second-Hand Smoke: Yes Diet: regular caffeine: Yes Dental Care, Regularly: No Physical Activity Frequency: Daily Seatbelt Use: always Sunscreen Use: No Assistive Devices: None Review of Systems Constitutional: no fever and no chills Respiratory: no cough and no dyspnea Cardiovascular: no chest pain Physical Exam Constitutional: well developed Respiratory: normal respiratory effort Cardiovascular: Rate/Rhythm: regular rate Psychiatric: Orientation: alert and oriented x 3 Results & Data Vital Signs (Past 12 Hours) Vital Signs Temp Pulse Pulse Resp BP BP BP 12/24/22 08:34 37.0 C 79 17 104/64 12/24/22 07:29 87 12/24/22 04:42 36.4 C L 81 18 104/70 12/24/22 00:20 78 12/24/22 00:34 36.5 C 88 18 117/75 12/23/22 23:30 85 12/23/22 23:50 66 13 12/23/22 23:40 83 23 12/23/22 23:31 86 13 12/24/22 00:04 65 18 118/77 12/23/22 22:19 79 20 121/73 Pulse Ox O2 Del Method 12/24/22 08:34 96 Room Air 12/24/22 07:29 12/24/22 04:42 95 Room Air 12/24/22 00:20 12/24/22 00:34 94 Room Air 12/23/22 23:30 12/23/22 23:50 94 12/23/22 23:40 92 12/23/22 23:31 98 12/24/22 00:04 95 Room Air 12/23/22 22:19 98 PG Care Time/CCT Total # of Minutes Spent Total Time Spent with Patient: Total time spent is greater than 50% in coordination of care (as documented) at patient's floor/unit and/or counseling patient: Coding Level of Care Code 44298 IN/OBS CONSULT LVL 4,60M Diagnoses SBO (small bowel obstruction) K56.609
[2022-12-24] MEDS: SERTRALINE HCL 100 MG TABLET PO SCH (12:21)
[2022-12-24] MEDS: lamoTRIgine 25 MG TAB PO SCH (12:21)
[2022-12-24] MEDS: ALPRAZolam 0.5 MG TABLET PO SCH ×2 (12:21→20:12)
[2022-12-24] MEDS: AMPHETAMINE ASP/SULF/DEXTRAMPH ER 20 MG CAP PO SCH (12:21)
--- NOTE | 2022-12-24 12:41 | Surgery Progress Note ---
Date of Service December 24, 2022 Assessment & Plan (1) SBO (small bowel obstruction): Plan: Etiology unclear. No urgent indication for surgical intervention. We will repeat KUB tomorrow. GI work-up in progress. We will continue to follow closely (2) Abdominal pain: Admission and Anticipated Discharge Date Admission Date: December 23, 2022 Subjective Patient seen. Feeling a fair amount better than she did last night. Still some dull but rather mild lower abdominal discomfort. She does feel distended. 1 episode of emesis since admission but she is currently not nauseated Physical Exam Constitutional: WD/WN, vitals as above no acute distress and not ill appearing Eyes: PERRL, conjunctivae normal, anicteric sclerae EOM intact bilaterally ENMT: external ear and nose normal, oropharynx normal Ears: no hearing impairment Neck: trachea midline, no thyromegaly Respiratory: normal respiratory effort; no respiratory distress and does not use accessory muscles Cardiovascular: Rate/Rhythm: regular rate and regular rhythm Gastrointestinal (Abdomen): Soft. Mild distention. Mild lower abdominal discomfort and tenderness. No peritoneal signs Skin: no rashes, warm and dry Psychiatric: Orientation: alert, oriented x 3 and cooperative Results & Data Vital Signs (Past 12 Hours) Vital Signs Temp Pulse Pulse Resp BP Pulse Ox O2 Del Method 12/24/22 11:55 37.0 C 63 16 97/62 L 98 Room Air 12/24/22 08:34 37.0 C 79 17 104/64 96 Room Air 12/24/22 07:29 87 12/24/22 04:42 36.4 C L 81 18 104/70 95 Room Air PG Care Time/CCT Total # of Minutes Spent Total Time Spent with Patient: Total time spent is greater than 50% in coordination of care (as documented) at patient's floor/unit and/or counseling patient: Coding Level of Care Code 62035 SUB INP/OBS CARE 2/35MIN Diagnoses SBO (small bowel obstruction) K56.609 Abdominal pain R10.9
[2022-12-24] MEDS ORDERED: ACETAMINOPHEN 1,000 MG/100 ML VIAL IV STA (20:13)
--- NOTE | 2022-12-25 08:12 | Hospitalist Progress Note ---
Date of Service December 24, 2022 Assessment & Plan (1) SBO (small bowel obstruction): Plan: 32yo female presenting with moderate grade SBO. Patient with history of c- section, previously thought to have IBD/Crohns based of terminal ileum biopsy results, now dx of IBD is being reconsidered. She currently follows with GI for chronic diarrhea. No prior bowel obstructions. Lactate normal at 0.6 -Admit to medical -will remain NPO. -IVF hydration with LR at 125mL/hr x 2L -Electrolyte repletion as needed -Dilaudid PRN pain -Zofran PRN nausea -Appreciate General Surgery consultation -Appreciate GI consultation. (2) Depression: Plan: Patient with history of Depression/Anxiety as well as OCD and ADHD -Continue Alprazolam for anxiety -Continue Adderall for ADHD -Continue Lamictal -Continue Sertraline Admission and Anticipated Discharge Date Admission Date: December 23, 2022 Subjective 32 yo female reports no new symptoms. Patient reports having a BM today, though not passing much gas. Patient will like to hold off NG tube. Review of Systems Review of Systems: All systems reviewed & are unremarkable except as noted in HPI & below Physical Exam Physical Exam: General: patient with abdominal pain Skin: warm, dry, intact, no rashes or lesions HEENT: NC/AT, PERRL, EOMI, anicteric sclera, conjunctiva without injection, external ear normal to inspection and nontender, nares patent, moist mucus membranes, dentition intact, no oropharyngeal lesions, neck supple, trachea midline, no LAD, no thyromegaly, no JVD Heart: +S1/S2, regular, no m/r/g Lungs: equal air entry bilaterally, no rales/rhonchi/wheezes Abd: +BS diminished, soft, non-distended, mildly tender with some voluntary guarding, no rebound Ext: warm, 2+ pulses in UE/LE bilaterally, no clubbing/cyanosis or edema Neuro: nonfocal, patient AA&O x 4, speech intact, no facial droop, moving all extremities on command with equal strength 5/5 Results & Data Results & Data Vital Signs (Past 12 Hours) Vital Signs Temp Pulse Pulse Resp BP Pulse Ox O2 Del Method 12/25/22 03:09 37.2 C 77 16 113/77 99 Room Air 12/24/22 21:58 75 12/24/22 22:31 36.8 C 62 16 92/57 L 99 Room Air PG Care Time/CCT Total # of Minutes Spent Total Time Spent with Patient: Total time spent is greater than 50% in coordination of care (as documented) at patient's floor/unit and/or counseling patient: Coding Level of Care Code 73777 SUB INP/OBS CARE 2/35MIN Diagnoses SBO (small bowel obstruction) K56.609 Depression F32.9
[2022-12-25] MEDS: AMPHETAMINE ASP/SULF/DEXTRAMPH ER 20 MG CAP PO SCH (08:19)
[2022-12-25] MEDS: ACETAMINOPHEN 325 MG TAB PO PRN (08:19)
[2022-12-25] MEDS: SERTRALINE HCL 100 MG TABLET PO SCH (08:19)
[2022-12-25] MEDS: lamoTRIgine 25 MG TAB PO SCH (08:19)
[2022-12-25] MEDS: ALPRAZolam 0.5 MG TABLET PO SCH ×2 (08:20→20:23)
[2022-12-25] MEDS: ONDANSETRON INJ 2 MG/ML 2 ML VIAL IV PRN (08:41)
[2022-12-25] MEDS: HYDROmorphone INJ 0.5 MG/0.5 ML SYR IV PRN (09:54)
--- NOTE | 2022-12-25 10:39 | XRay Report ---
KUB CLINICAL HISTORY: Small bowel obstruction. COMPARISON STUDY: CT of the abdomen and pelvis December 23, 2022. FINDINGS: Intrauterine device is incidentally noted. Small bowel dilatation is no longer identified. Pelvic calcifications represent phleboliths. No evidence for free air on supine exam. No pneumatosis or portal venous gas identified by radiography. IMPRESSION: Small bowel dilatation no longer identified. The findings suggest an improving small lisseth l obstruction. ACT 112: Negative or not required by law. Electronically signed by: Javy Antonio M.D. 12/25/2022 10:38 AM
[2022-12-25] MEDS: methylPREDNISolone 40 MG in SYRINGE 0 ML IV SCH ×2 (10:45→20:18)
--- NOTE | 2022-12-25 11:38 | Gastroenterology Progress Note ---
Date of Service December 25, 2022 Assessment & Plan (1) SBO (small bowel obstruction): Plan: Imaging improved. Patient continues with persistent symptoms. -Added IV Solumedrol 40 mg BID, can d/c on steroid taper as well -Plan for outpatient colonoscopy in the coming weeks; Our office will be in touch with her to arrange -Continue supportive care Admission and Anticipated Discharge Date Admission Date: December 23, 2022 Supervising Physician Co-Signing Physician Notes Agree with DEMETRIO Be as above Abd: Soft, tender, slightly distended, +BS Continue current therapy Continue supportive care Check KUB daily Subjective Patient is a 32 yo female with SBO. She underwent a KUB this AM. This showed resolution of SBO. She notes ongoing abdominal pain (mid-right side of abdomen). She notes nausea & vomiting. CRP 1.79. She received her first dose of IV Solumedrol this AM. She is not passing gas or moving her bowels. Review of Systems Constitutional: no fever and no chills Respiratory: no cough and no dyspnea Cardiovascular: no chest pain Gastrointestinal: + abdominal pain, + bloating, + nausea and + vomiting Physical Exam Gastrointestinal (Abdomen): Inspection/Auscultation: + abdomen distended and + hypoactive bowel sounds Percussion/Palpation: + abdomen tender and abdomen soft Results & Data Results & Data Vital Signs (Past 12 Hours) Vital Signs Temp Pulse Pulse Resp BP Pulse Ox O2 Del Method 12/25/22 10:38 86 12/25/22 03:09 37.2 C 77 16 113/77 99 Room Air PG Care Time/CCT Total # of Minutes Spent Total Time Spent with Patient: Total time spent is greater than 50% in coordination of care (as documented) at patient's floor/unit and/or counseling patient: Coding Level of Care Code 93155 SUB INP/OBS CARE 3/50MIN Diagnoses SBO (small bowel obstruction) K56.609
[2022-12-25] MEDS: ACETAMINOPHEN 325 MG TAB PO SCH ×3 (12:36→22:07)
[2022-12-25] MEDS: LACTATED RINGER'S 1,000 ML IV SCH ×2 (12:36→20:18)
--- NOTE | 2022-12-25 13:42 | Surgery Progress Note ---
Date of Service December 25, 2022 Assessment & Plan (1) Abdominal pain: Plan: White blood cell count now normal. KUB showing improvement. I do not suspect this is a typical small bowel obstruction but rather some sort of viral etiology versus inflammatory bowel. Agree with steroids. We will continue to follow along. Dr. Hester covering for the weekend Admission and Anticipated Discharge Date Admission Date: December 23, 2022 Subjective Patient seen. Overall showing some improvement although still having some abdominal pain. She did have some vomiting after her medications this morning. Physical Exam Constitutional: WD/WN, vitals as above no acute distress and not ill appearing Eyes: PERRL, conjunctivae normal, anicteric sclerae EOM intact bilaterally ENMT: external ear and nose normal, oropharynx normal Ears: no hearing impairment Neck: trachea midline, no thyromegaly Respiratory: normal respiratory effort; no respiratory distress and does not use accessory muscles Cardiovascular: Rate/Rhythm: regular rate and regular rhythm Gastrointestinal (Abdomen): Soft. Minimal tenderness. Nondistended. Skin: no rashes, warm and dry Psychiatric: Orientation: alert, oriented x 3 and cooperative Results & Data Vital Signs (Past 12 Hours) Vital Signs Temp Pulse Pulse Resp BP Pulse Ox O2 Del Method 12/25/22 12:32 37.1 C 80 17 111/68 96 Room Air 12/25/22 10:38 86 12/25/22 03:09 37.2 C 77 16 113/77 99 Room Air PG Care Time/CCT Total # of Minutes Spent Total Time Spent with Patient: Total time spent is greater than 50% in coordination of care (as documented) at patient's floor/unit and/or counseling patient: Coding Level of Care Code 81614 SUB INP/OBS CARE 2/35MIN Diagnoses Abdominal pain R10.9
--- NOTE | 2022-12-25 23:02 | Hospitalist Progress Note ---
Date of Service December 25, 2022 Assessment & Plan (1) SBO (small bowel obstruction): Plan: 32yo female presenting with moderate grade SBO. Patient with history of c- section, previously thought to have IBD/Crohns based of terminal ileum biopsy results, now dx of IBD is being reconsidered. She currently follows with GI for chronic diarrhea. No prior bowel obstructions. Lactate normal at 0.6 -Admit to medical -will remain NPO. -IVF hydration with LR at 125mL/hr x 2L -Electrolyte repletion as needed -Dilaudid PRN pain -Zofran PRN nausea -Appreciate General Surgery consultation -Appreciate GI consultation. Patient remains NPO for now. Encouraged patient to ambulate. Placed tylenol scheduled and ordered IVF. (2) Depression: Plan: Patient with history of Depression/Anxiety as well as OCD and ADHD -Continue Alprazolam for anxiety -Continue Adderall for ADHD -Continue Lamictal -Continue Sertraline Admission and Anticipated Discharge Date Admission Date: December 23, 2022 Subjective Patient reports feeling mildly better. She still has some nausea and pain especially when ambulating. Review of Systems Review of Systems: All systems reviewed & are unremarkable except as noted in HPI & below Physical Exam Physical Exam: General: patient with abdominal pain Heart: +S1/S2, regular, no m/r/g Lungs: equal air entry bilaterally, no rales/rhonchi/wheezes Abd: +BS diminished, soft, non-distended, mildly tender with some voluntary guarding, no rebound Results & Data Results & Data Vital Signs (Past 12 Hours) Vital Signs Temp Pulse Pulse Resp BP Pulse Ox O2 Del Method 12/25/22 19:00 36.7 C 44 L 18 128/72 94 Room Air 12/25/22 18:30 65 12/25/22 16:46 36.9 C 83 18 124/77 97 Room Air 12/25/22 12:32 37.1 C 80 17 111/68 96 Room Air PG Care Time/CCT Total # of Minutes Spent Total Time Spent with Patient: Total time spent is greater than 50% in coordination of care (as documented) at patient's floor/unit and/or counseling patient: Coding Level of Care Code 67333 SUB INP/OBS CARE 2/35MIN Diagnoses SBO (small bowel obstruction) K56.609 Depression F32.9
[2022-12-26] MEDS: LACTATED RINGER'S 1,000 ML IV SCH ×2 (04:00→11:50)
[2022-12-26 07:21] LABS: Hematocrit (blood only) 35.8 % (37.0-47.0); Hemoglobin 12.5 g/dl (12.0-16.0); Mean Corpuscular Hemoglobin 29.6 pg (25.0-34.0); Mean Corpuscular Hgb Conc 34.9 g/dL (32.0-36.0); Mean Corpuscular Volume 84.6 fL (80.0-100.0); Mean Platelet Volume 9.1 fL (9.4-12.4); Platelet Count 255 K/uL (130-400); RDW Coefficient of Variation 11.9 % (11.5-14.5); RDW Standard Deviation 36.4 fL (36.4-46.3); Red Blood Count 4.23 M/uL (4.20-5.40); White Blood Count 7.96 K/ul (4.8-10.8)
[2022-12-26 07:41] LABS: BUN Creatinine Ratio 14.3 (10-20); Calcium 8.9 mg/dl (8.6-10.3); Creatinine Clr Calc Pharmacy 142.2 ml/min; Est GFR (Non-African American) 122.5 ml/min; Potassium 4.1 mmol/L (3.5-5.1)
[2022-12-26] MEDS: ACETAMINOPHEN 325 MG TAB PO SCH ×4 (08:19→20:10)
[2022-12-26] MEDS: ONDANSETRON INJ 2 MG/ML 2 ML VIAL IV PRN (08:19)
[2022-12-26] MEDS: AMPHETAMINE ASP/SULF/DEXTRAMPH ER 20 MG CAP PO SCH (08:20)
[2022-12-26] MEDS: ALPRAZolam 0.5 MG TABLET PO SCH ×2 (08:20→20:30)
[2022-12-26] MEDS: methylPREDNISolone 40 MG in SYRINGE 0 ML IV SCH ×2 (08:20→20:10)
[2022-12-26] MEDS: lamoTRIgine 25 MG TAB PO SCH (08:20)
[2022-12-26] MEDS: SERTRALINE HCL 100 MG TABLET PO SCH (08:20)
--- NOTE | 2022-12-26 15:10 | Surgery Progress Note ---
Date of Service December 26, 2022 Assessment & Plan (1) Abdominal pain: Plan: Patient seen and examined with Dr. Hester. WBC remains within normal limits. She remains afebrile. KUB from yesterday shows improvement. She reports that she is feeling better today. She would would like to try some liquids today- Advanced to full liquids. Encouraged ambulation. Admission and Anticipated Discharge Date Admission Date: December 23, 2022 Subjective Raiza is sitting up in bed, she does report improvement in abdominal pain today. She has started moving her bowels. She reports some mild nausea. KUB from 12/25 shows that she is slowly improving. Review of Systems Constitutional: no fever and no chills Gastrointestinal: + abdominal pain (improved from yesterday) and + nausea (improved greatly from yesterday); no vomiting Physical Exam Constitutional: WD/WN, vitals as above no acute distress and not ill appearing Eyes: PERRL, conjunctivae normal, anicteric sclerae EOM intact bilaterally ENMT: external ear and nose normal, oropharynx normal Ears: no hearing impairment Neck: trachea midline, no thyromegaly Respiratory: normal respiratory effort; no respiratory distress and does not use accessory muscles Cardiovascular: Rate/Rhythm: regular rate and regular rhythm Gastrointestinal (Abdomen): Soft. Minimal tenderness. Nondistended. Skin: no rashes, warm and dry Psychiatric: Orientation: alert, oriented x 3 and cooperative Results & Data Vital Signs (Past 12 Hours) Vital Signs Temp Pulse Pulse Resp BP Pulse Ox O2 Del Method 12/26/22 11:39 37.1 C 73 16 124/78 96 Room Air 12/26/22 07:59 36.4 C L 70 16 129/76 99 Room Air 12/26/22 07:19 61 PG Care Time/CCT Total # of Minutes Spent Total Time Spent with Patient: Total time spent is greater than 50% in coordination of care (as documented) at patient's floor/unit and/or counseling patient: Coding Level of Care Code 46899 SUB INP/OBS CARE 1/25MIN Diagnoses Abdominal pain R10.9
[2022-12-26] MEDS ORDERED: CALCIUM CARBONATE 500 MG CHEWABLE TAB PO ONE (20:16)
[2022-12-27] MEDS: LACTATED RINGER'S 1,000 ML IV SCH (00:09)
[2022-12-27] MEDS: AMPHETAMINE ASP/SULF/DEXTRAMPH ER 20 MG CAP PO SCH (08:26)
[2022-12-27] MEDS: methylPREDNISolone 40 MG in SYRINGE 0 ML IV SCH (08:26)
[2022-12-27] MEDS: ACETAMINOPHEN 325 MG TAB PO SCH ×3 (08:26→17:20)
[2022-12-27] MEDS: SERTRALINE HCL 100 MG TABLET PO SCH (08:27)
[2022-12-27] MEDS: lamoTRIgine 25 MG TAB PO SCH (08:27)
[2022-12-27] MEDS: ALPRAZolam 0.5 MG TABLET PO SCH (08:27)
--- NOTE | 2022-12-27 09:01 | Hospitalist Progress Note ---
Date of Service December 26, 2022 Assessment & Plan (1) SBO (small bowel obstruction): Plan: 32yo female presenting with moderate grade SBO. Patient with history of c- section, previously thought to have IBD/Crohns based of terminal ileum biopsy results, now dx of IBD is being reconsidered. She currently follows with GI for chronic diarrhea. No prior bowel obstructions. Lactate normal at 0.6 -Admit to medical -will remain NPO. -IVF hydration with LR at 125mL/hr x 2L -Electrolyte repletion as needed -Dilaudid PRN pain -Zofran PRN nausea -Appreciate General Surgery consultation -Appreciate GI consultation. Now on a liquid diet. Passing a BM yesterday. (2) Depression: Plan: Patient with history of Depression/Anxiety as well as OCD and ADHD -Continue Alprazolam for anxiety -Continue Adderall for ADHD -Continue Lamictal -Continue Sertraline Admission and Anticipated Discharge Date Admission Date: December 23, 2022 Subjective Patient reports she had a small bowel movement on the . Patient reports feeling slightly better. Patient is now tolerated a liquid diet. Review of Systems Review of Systems: All systems reviewed & are unremarkable except as noted in HPI & below Physical Exam Physical Exam: General: patient with abdominal pain Heart: +S1/S2, regular, no m/r/g Lungs: equal air entry bilaterally, no rales/rhonchi/wheezes Abd: +BS diminished, soft, non-distended, mildly tender with some voluntary guarding, no rebound Results & Data Results & Data Vital Signs (Past 12 Hours) Vital Signs Temp Pulse Pulse Resp BP Pulse Ox O2 Del Method 12/27/22 07:53 36.9 C 58 L 16 109/68 97 Room Air 12/27/22 07:25 48 L 12/27/22 03:00 36.7 C 54 L 18 108/69 98 Room Air 12/27/22 00:12 55 L 12/26/22 22:00 37 C 56 L 18 120/73 97 Room Air PG Care Time/CCT Total # of Minutes Spent Total Time Spent with Patient: Total time spent is greater than 50% in coordination of care (as documented) at patient's floor/unit and/or counseling patient: Coding Level of Care Code 79061 SUB INP/OBS CARE 2/35MIN Diagnoses SBO (small bowel obstruction) K56.609 Depression F32.9
[2022-12-27] MEDS: ONDANSETRON INJ 2 MG/ML 2 ML VIAL IV PRN (09:04)
[2022-12-27 09:34] LABS: Hematocrit (blood only) 36.6 % (37.0-47.0); Hemoglobin 12.6 g/dl (12.0-16.0); Mean Corpuscular Hemoglobin 29.9 pg (25.0-34.0); Mean Corpuscular Hgb Conc 34.4 g/dL (32.0-36.0); Mean Corpuscular Volume 86.7 fL (80.0-100.0); Mean Platelet Volume 9.1 fL (9.4-12.4); Platelet Count 278 K/uL (130-400); RDW Coefficient of Variation 12.1 % (11.5-14.5); RDW Standard Deviation 38.5 fL (36.4-46.3); Red Blood Count 4.22 M/uL (4.20-5.40); White Blood Count 9.55 K/ul (4.8-10.8)
--- NOTE | 2022-12-27 09:35 | XRay Report ---
KUB CLINICAL HISTORY: Small bowel obstruction COMPARISON STUDY: CT of the abdomen and pelvis December 23, 2021. KUB December 25, 2021. FINDINGS: Intrauterine device is incidentally noted. No dilated loops of small bowel are identified. Gas within portions of the colon and rectum is noted. IMPRESSION: No radiographic evidence for a small bowel obstruction. Of note, fluid-filled small bowel loops may be occult by radiography. ACT 112: Negative or not required by law. Electronically signed by: Javy Antonio M.D. 12/27/2022 9:34 AM
[2022-12-27 09:48] LABS: BUN Creatinine Ratio 13.4 (10-20); C Reactive Protein 1.11 mg/dl (0-0.5); Calcium 9.4 mg/dl (8.6-10.3); Creatinine Clr Calc Pharmacy 118.7 ml/min; Est GFR (African American) 133.9 ml/min; Est GFR (Non-African American) 115.5 ml/min; Potassium 3.8 mmol/L (3.5-5.1)
--- NOTE | 2022-12-27 10:01 | Surgery Progress Note ---
Date of Service December 27, 2022 Assessment & Plan (1) SBO (small bowel obstruction): Plan: Patient seen and examined with Dr. Hester. She reports that she is feeling better today. Ok for low fiber diet Having BM and passing flatus Encouraged ambulation. Maybe d/c from a surgical stand point Admission and Anticipated Discharge Date Admission Date: December 23, 2022 Supervising Physician Co-Signing Physician Notes Okay to discharge discussed with the patient the need for staying on a low fiber diet no need to follow-up with us unless new issues arise Subjective No abdominal pain Reports some bloating Feeling well having BMs Review of Systems Gastrointestinal: + bloating; no abdominal pain, no nausea and no vomiting Physical Exam Physical Exam: alert oriented Gastrointestinal (Abdomen): Inspection/Auscultation: abdomen not distended Percussion/Palpation: abdomen soft; abdomen nontender and no guarding Results & Data Vital Signs (Past 12 Hours) Vital Signs Temp Pulse Pulse Resp BP Pulse Ox O2 Del Method 12/27/22 07:53 98.4 F 58 L 16 109/68 97 Room Air 12/27/22 07:25 48 L 12/27/22 03:00 98.1 F 54 L 18 108/69 98 Room Air 12/27/22 00:12 55 L 12/26/22 22:00 98.6 F 56 L 18 120/73 97 Room Air PG Care Time/CCT Total # of Minutes Spent Total Time Spent with Patient: Total time spent is greater than 50% in coordination of care (as documented) at patient's floor/unit and/or counseling patient: Coding Level of Care Code 47364 SUB INP/OBS CARE 04/29MIN Diagnoses SBO (small bowel obstruction) K56.609
--- NOTE | 2022-12-27 16:24 | Hospitalist Progress Note ---
Date of Service December 27, 2022 Assessment & Plan (1) SBO (small bowel obstruction): Plan: 32yo female presenting with moderate grade SBO. Patient with history of c- section, previously thought to have IBD/Crohns based of terminal ileum biopsy results, now dx of IBD is being reconsidered. She currently follows with GI for chronic diarrhea. No prior bowel obstructions. Lactate normal at 0.6 -Admit to medical -will remain NPO. -IVF hydration with LR at 125mL/hr x 2L -Electrolyte repletion as needed -Dilaudid PRN pain -Zofran PRN nausea -Appreciate General Surgery consultation -Appreciate GI consultation. Now on a liquid diet. Passing a BM yesterday. (2) Depression: Plan: Patient with history of Depression/Anxiety as well as OCD and ADHD -Continue Alprazolam for anxiety -Continue Adderall for ADHD -Continue Lamictal -Continue Sertraline Admission and Anticipated Discharge Date Admission Date: December 23, 2022 Results & Data Results & Data Vital Signs (Past 12 Hours) Vital Signs Temp Pulse Pulse Resp BP Pulse Ox O2 Del Method 12/27/22 16:13 82 12/27/22 12:00 37.2 C 62 16 138/91 95 Room Air 12/27/22 07:53 36.9 C 58 L 16 109/68 97 Room Air 12/27/22 07:25 48 L PG Care Time/CCT Total # of Minutes Spent Total Time Spent with Patient: Total time spent is greater than 50% in coordination of care (as documented) at patient's floor/unit and/or counseling patient: Coding Diagnoses SBO (small bowel obstruction) K56.609 Depression F32.9
--- NOTE | 2022-12-27 17:12 | Discharge Summary ---
Date of Service December 27, 2022 Admission HPI Per Admitting Provider Raiza Rod is a 32yo female with history of previously diagnosed Crohns disease, ADHD and chronic diarrhea presenting with abdominal pain. Patient was in her usual state of health until this morning when she developed mid-abdominal pain. The pain was first mild and intermittent but throughout the day it has become more severe and constant. Some mild abdominal distention Pain is mid-abdomen/eduardo-umbilical, 10/10 in severity with radiation into bilateral flanks and back. No nausea or vomiting, no fever/chills, CP/Cough or SOB. No melena or hematochezia. Last BM was yesterday AM - firm consistency which is ABNORMAL for the patient as she has chronic diarrhea. No flatus. In regards to patient's Crohn's disease. She was initially diagnosed in 01/2021 after having a colonoscopy for chronic diarrhea. She had a biopsy performed which revealed moderate acute and chronic ileitis and was diagnosed with Crohns disease. She was prescribed Budesonide. She had another colonoscopy in August 2021 which was normal. Biopsies performed which were normal as well. Patient thought to be in remission from her Crohns. She has had additional workup for her diarrhea to include a fecal calprotectin which was WNL as well as an MRE which was unremarkable as well. Thought possibly that patient does not, in fact, have Crohns disease - possibly that her initial biopsy was secondary to NSAID/Medication use. She has never had a Crohns "flare" before. No history of prior bowel obstruction. In the ER she is afebrile, HD stable. In pain - relieved in part with Dilaudid IV Evaluated by General Surgery Principal Diagnosis Small bowel obstruction Discharge Exam General: patient with abdominal pain Heart: +S1/S2, regular, no m/r/g Lungs: equal air entry bilaterally, no rales/rhonchi/wheezes Abd: +BS diminished, soft, non-distended, no tenderness to palpation Discharge Data Allergies Allergy/AdvReac Type Severity Reaction Status Date / Time No Known Allergies Allergy Mild Verified 12/23/22 18:16 Consultations 12/23/22 21:45 Consult General Surgery Routine 12/24/22 00:34 Consult Gastroenterology Routine Ordered Studies 12/23/22 18:11 CT Abd and Pelvis [CT abd pelvis IV con only] Stat Hospital Course (1) SBO (small bowel obstruction): 32yo female presenting with moderate grade SBO. Patient with history of c- section, previously thought to have IBD/Crohns based of terminal ileum biopsy results, now dx of IBD is being reconsidered. She currently follows with GI for chronic diarrhea. No prior bowel obstructions. Lactate normal at 0.6 -Admit to medical -will remain NPO. -IVF hydration with LR at 125mL/hr x 2L -Electrolyte repletion as needed -Dilaudid PRN pain -Zofran PRN nausea -Appreciate General Surgery consultation -Appreciate GI consultation. Diet slowly advanced. Patient is now on a low fiber diet and will be discharged. Followup with GI noted below. Will discharge on corticosteroids for possible inflammatory bowel causing SBO. (2) Depression: Patient with history of Depression/Anxiety as well as OCD and ADHD -Continue Alprazolam for anxiety -Continue Adderall for ADHD -Continue Lamictal -Continue Sertraline Total Time Total Time Spent Total Time Spent (In Minutes): 35 Discharge Plan Discharge Items Patient Disposition: Home - Self-Care Reason For Visit: SBO Discharge Diagnosis: SBO Activity: Resume your previous activity Non-emergency contact: Primary Care Provider Call non-emergency contact if: you have any medication questions Follow-up/Referrals: Bridgette Olsen MD [Primary Care Provider] - 01/11/23 11:00 am Diet: Low Fiber Addtl Attending Provider Instructions: Followup with GI within 1 month Followup with PCP in 1-2 weeks A low fiber diet is typically recommended for individuals with certain medical conditions or as a temporary measure to relieve digestive symptoms. Here is some basic information about a low fiber diet: 1. Purpose: A low fiber diet limits the intake of foods high in dietary fiber to reduce the workload on the digestive system and ease symptoms like diarrhea, abdominal pain, or cramping. 2. Foods to limit or avoid: - Whole grains (e.g., whole wheat, whole oats, brown rice) - Legumes (e.g., lentils, beans, chickpeas) - Nuts and seeds - Raw fruits and vegetables (except for some cooked or peeled options) - High-fiber cereals or breads 3. Foods generally allowed: - Refined grains (e.g., white bread, white rice, refined cereals) - Cooked and peeled fruits and vegetables (e.g., applesauce, canned fruits, cooked carrots) - Lean meats, poultry, and fish - Dairy products (unless lactose intolerant) - Eggs 4. Cooking and preparation methods: - Choose peeled or cooked fruits and vegetables instead of raw ones. - Remove seeds and skin from fruits and vegetables. - Opt for refined grain products instead of whole grains. - Cook or soak legumes to reduce their fiber content. Pending Studies at Discharge: No Stand-Alone Forms: My [facility], Work/School Release, Smoking Cessation Medications and DC Order Prescriptions: New prednisone 5 mg tablet See Rx Instructions .ROUTE .COMPLEX Qty: 252 0RF Rx Instructions: prednisone 5 mg: take 8 tablets (40 mg) once daily on week 1; 7 tablets (35 mg) once daily on week 2; then decrease by 1 tablet every week until finished acetaminophen 325 mg Tablet 650 mg PO QID 14 Days Qty: 112 0RF Continued sertraline 100 mg tablet 300 mg PO QAM alprazolam [Xanax] 0.5 mg tablet 0.5 mg PO BID lamotrigine 25 mg tablet 50 mg PO QAM dextroamphetamine-amphetamine 20 mg capsule,extended release 24hr 20 mg PO QAM cholecalciferol (vitamin D3) [Vitamin D3] 50 mcg (2,000 unit) Capsule 50 mcg PO DAILY Discharge Orders: Discharge Order (Routine); Ordered 12/27/22 Ordered By: Kirby Veloz/Other Patient Handouts: Small Bowel Obstruction Admission Data Admit Date/Time: 12/23/22 21:45 Attending Provider: Kirby Lopez Admit Provider: Felicita Burgess Primary Care Provider: Bridgette Olsen Other Providers: Angel Greenberg ; Abhi Hi Other Interventions: Discharge Summary Assessment (RN) Last Done: 12/27/22 17:19 Coding Level of Care Code 25176 INP/OBS DISCH >30 MIN Diagnoses SBO (small bowel obstruction) K56.609 Depression F32.9
== END 2022-12-27 18:27 | disposition home or self-care (01) | DRG 390 ==
LOC: ED 16:52 → SUATTDRO 21:45 → 2N 21:45